=== PATIENT | male | born 1945 | race Caucasian/White ===

== ENCOUNTER 2018-03-26 22:00 | Emergency (ER) | payer MEDICARE, OTHER ==
[~2018-03-26] VITALS: Ht 180.3 cm; Wt 114.3 kg
[~2018-03-26 22:00] MED LIST: ABAT250V; ALFU10 PO; ALPR.5 PO; AMIO200 PO; AMLO10 PO; AMLO5; AMLO5 PO; ASCO500; ASPI325 PO; ASPI325EC PO; ASPI81EC; ATOR40TA; Augmentin 875-1 EACH PO; BUSP10; BUSP15; BUSP15 PO; CARV25 PO; CARV6.25 PO; CEFP200 PO; CHOL10002 PO; CO Q10200 MG; DEXILANT; DEXILANT PO; DEXL60CA3 PO; DIGO.25; DIGO.25 PO; ELIQUIS5 MG PO; FENO48 PO; FENO54 PO; FERR325 PO; FINA5 PO; FLEC50 PO; FURO40 PO; GABA300; HCTZ PO; HYDACE7.5 PO; HYDCHL12.5; HYDCHL25 PO; HYDR1TAB94 PO; IRON; LEVFLO500 PO; LISI20; LISI20 PO; LISI5 PO; MAGCHL64ER PO; MECL25 PO; METHI10 PO; METO100ER; MULTAQ PO; NABU500; NEBI5 PO; NIAC500 PO; Norco 5-325 Ta1 EACH PO; OMEP20ER PO; PARO10 PO; PRED10 PO; PROP80ER PO; Prednisone20 MG PO; QUIN325; RANI150 PO; RXHYD5325 PO; SAWPALMETTO; SERT100 PO; SPIHYD; SPIR25 PO; TAMS.4ER; TAMS.4ER PO; TELM40 PO; TELM80 PO; TRAZ100; TRAZ100 PO; TRAZ50; TRIHYD253A PO; Tambocor100 MG PO; UBID100 PO; Vitamin D2000 UNIT PO; WARF2; WARF2.5 PO; WARF5 PO; ZOLP10 PO; [UNRECOGNIZED DRUG - CODE]
[2018-03-26] MEDS ORDERED: CEPH500 PO (22:23)
== END 2018-03-26 22:48 | disposition home or self-care (01) ==
LOC: ER 22:00
DX: S61.432A Puncture wound without foreign body of left hand, initial encounter (principal); I10 Essential (primary) hypertension; I48.91 Unspecified atrial fibrillation; Z88.5 Allergy status to narcotic agent; Z88.6 Allergy status to analgesic agent; Z23 Encounter for immunization; Z79.899 Other long term (current) drug therapy; Z79.01 Long term (current) use of anticoagulants; Z87.891 Personal history of nicotine dependence; W24.0XXA Contact with lifting devices, not elsewhere classified, initial encounter
CPT/HCPCS: 90471; 90714; 99283-25

== ENCOUNTER 2018-05-03 16:28 | Inpatient (IN) | payer MEDICARE, OTHER ==
[~2018-05-03] VITALS: Ht 180.3 cm; Wt 105.9 kg
[~2018-05-03 16:28] MED LIST changes: +CEPH500 PO
[2018-05-03] MEDS ORDERED: SERT100 PO (16:58)
[2018-05-03] MEDS ORDERED: Ferrous Sulfat325 MG PO (17:03)
[2018-05-03] MEDS ORDERED: LIVALO1 MG PO (17:03)
[2018-05-03] MEDS ORDERED: SPIR25 PO (17:03)
[2018-05-03 17:10] LABS: BASOPHILS ABSOLUTE AUTO 0.07 K/mm3 (0.00-0.23); BASOPHILS PERCENT AUTO 1 % (0-2); EOSINOPHILS ABSOLUTE AUTO 0.21 K/mm3 (0.00-0.68); EOSINOPHILS PERCENT AUTO 2 % (0-6); Hematocrit 46.3 % (37.0-53.0); Hemoglobin 15.4 g/dL (13.5-17.5); IMMATURE GRAN ABSOLUTE AUTO 0.03 K/mm3 (0.00-0.10); IMMATURE GRAN PERCENT AUTO 0 % (0-1); LYMPHOCYTES ABSOLUTE AUTO 1.45 K/mm3 (0.84-5.20); LYMPHOCYTES PERCENT AUTO 16 % (21-46); MONOCYTES ABSOLUTE AUTO 0.78 K/mm3 (0.16-1.47); MONOCYTES PERCENT AUTO 9 % (4-13); Mean Corpuscular HGB 30.1 pg (26.0-34.0); Mean Corpuscular HGB Conc 33.3 g/dL (31.5-36.5); Mean Corpuscular Volume 91 fL (80-100); Mean Platelet Volume 10.2 fL (9.1-12.4); NEUTROPHILS ABSOLUTE AUTO 6.66 K/mm3 (1.96-9.15); NEUTROPHILS PERCENT AUTO 72 % (41-73); Platelet Count 188 K/mm3 (150-400); RDW Coefficient Variation 13.3 % (11.7-14.2); RDW Standard Deviation 45.1 fL (35.1-46.3); Red Blood Cell Count 5.11 M/mm3 (4.30-5.90)
[2018-05-03 17:32] LABS: Albumin, Blood 3.8 g/dL (3.4-5.0); Albumin/Globulin Ratio 1.1 (0.8-1.8); Bilirubin, Total 0.3 mg/dL (0.1-1.0); Bun/Creatinine Ratio 18.3 (12.0-20.0); Calcium, Blood 9.3 mg/dL (8.5-10.1); Creatinine, Blood 1.26 mg/dL (0.60-1.20); Globulin, Blood 3.6 g/dL (2.2-4.0); Potassium, Blood 4.5 mmol/L (3.5-5.5); Total Protein, Blood 7.4 g/dL (6.4-8.2)
[2018-05-03 17:48] LABS: Troponin I 1.08 ng/mL (0.000-0.040)
[2018-05-03 19:35] LABS: International Normalized Ratio 1.02; Prothrombin Time Results 10.5 Sec (9.7-11.5)
[2018-05-03 20:18] LABS: Creatine Kinase MB 15.2 ng/mL (0.0-3.6); Creatine Kinase MB Index 6.4 (0.0-4.0)
[2018-05-03 20:35] LABS: Troponin I 3.64 ng/mL (0.000-0.040)
[2018-05-03] MEDS ORDERED: ASCO500 PO (21:42)
[2018-05-03] MEDS ORDERED: CYAN500 PO (21:43)
[2018-05-04 03:49] LABS: BASOPHILS ABSOLUTE AUTO 0.06 K/mm3 (0.00-0.23); BASOPHILS PERCENT AUTO 1 % (0-2); EOSINOPHILS ABSOLUTE AUTO 0.19 K/mm3 (0.00-0.68); EOSINOPHILS PERCENT AUTO 2 % (0-6); Hematocrit 46.3 % (37.0-53.0); Hemoglobin 15.1 g/dL (13.5-17.5); IMMATURE GRAN ABSOLUTE AUTO 0.04 K/mm3 (0.00-0.10); IMMATURE GRAN PERCENT AUTO 1 % (0-1); LYMPHOCYTES ABSOLUTE AUTO 1.52 K/mm3 (0.84-5.20); LYMPHOCYTES PERCENT AUTO 19 % (21-46); MONOCYTES ABSOLUTE AUTO 0.77 K/mm3 (0.16-1.47); MONOCYTES PERCENT AUTO 9 % (4-13); Mean Corpuscular HGB 29.7 pg (26.0-34.0); Mean Corpuscular HGB Conc 32.6 g/dL (31.5-36.5); Mean Corpuscular Volume 91 fL (80-100); Mean Platelet Volume 10.2 fL (9.1-12.4); NEUTROPHILS ABSOLUTE AUTO 5.64 K/mm3 (1.96-9.15); NEUTROPHILS PERCENT AUTO 69 % (41-73); Platelet Count 142 K/mm3 (150-400); RDW Coefficient Variation 13.5 % (11.7-14.2); RDW Standard Deviation 44.9 fL (35.1-46.3); Red Blood Cell Count 5.09 M/mm3 (4.30-5.90); White Blood Cell Count 8.22 K/mm3 (4.00-11.30)
[2018-05-04 04:21] LABS: CPK Creatine Kinase 174 U/L (39-308); Creatine Kinase MB 11.8 ng/mL (0.0-3.6); Creatine Kinase MB Index 6.8 (0.0-4.0); Magnesium, Blood 2.1 mg/dL (1.6-2.4)
[2018-05-04 04:22] LABS: Anion Gap 10 mmol/L (6-16); Blood Urea Nitrogen 19 mg/dL (8-24); Bun/Creatinine Ratio 15.6 (12.0-20.0); CHOL/HDL RATIO 7.3; CO2, Blood 23 mmol/L (21-32); Calcium, Blood 8.3 mg/dL (8.5-10.1); Chloride, Blood 107 mmol/L (98-108); Cholesterol 189 mg/dL (50-200); Creatinine, Blood 1.22 mg/dL (0.60-1.20); Glomerular Filtration Rate >60 (60-); Glucose, Blood 109 mg/dL (70-99); HDL Cholesterol 26 mg/dL (>39); Phosphorus, Blood 2.8 mg/dL (2.5-4.9); Potassium, Blood 4.1 mmol/L (3.5-5.5); Sodium, Blood 140 mmol/L (136-145); Triglycerides 570 mg/dL (30-160); Very Low Density Lipoprot Chol Unable to Calculate mg/dL (6-32)
[2018-05-04 04:23] LABS: LDL/HDL RATIO Unable to Calculate; Low Density Lipoprotein Chol Unable to Calculate mg/dL (0-110)
[2018-05-04 09:57] LABS: Creatine Kinase MB 12.9 ng/mL (0.0-3.6); Creatine Kinase MB Index 7.2 (0.0-4.0)
[2018-05-04 10:36] LABS: Troponin I 1.38 ng/mL (0.000-0.040)
[2018-05-05 04:14] LABS: Anion Gap 9 mmol/L (6-16); Blood Urea Nitrogen 16 mg/dL (8-24); Bun/Creatinine Ratio 13.7 (12.0-20.0); CO2, Blood 24 mmol/L (21-32); Calcium, Blood 8.1 mg/dL (8.5-10.1); Chloride, Blood 109 mmol/L (98-108); Creatinine, Blood 1.17 mg/dL (0.60-1.20); Glomerular Filtration Rate >60 (60-); Glucose, Blood 116 mg/dL (70-99); Potassium, Blood 4.1 mmol/L (3.5-5.5); Sodium, Blood 142 mmol/L (136-145)
[2018-05-06 03:50] LABS: Anion Gap 8 mmol/L (6-16); Blood Urea Nitrogen 15 mg/dL (8-24); Bun/Creatinine Ratio 12.5 (12.0-20.0); CO2, Blood 24 mmol/L (21-32); Calcium, Blood 8.4 mg/dL (8.5-10.1); Chloride, Blood 107 mmol/L (98-108); Glomerular Filtration Rate >60 (60-); Glucose, Blood 103 mg/dL (70-99); Potassium, Blood 4.4 mmol/L (3.5-5.5); Sodium, Blood 139 mmol/L (136-145)
== END 2018-05-06 14:15 | disposition short-term general hospital (02) | DRG 281 ==
LOC: ER 16:28 → ICUW 18:26 → ICUE 18:26
PROVIDERS: Family Medicine; Physician Assistant
PROC: 4A023N7 Measurement of Cardiac Sampling and Pressure, Left Heart, Percutaneous Approach (ICD-10-PCS; principal; 2018-05-05)
PROC: B211YZZ Fluoroscopy of Multiple Coronary Arteries using Other Contrast (ICD-10-PCS; 2018-05-05)
DX: I21.4 Non-ST elevation (NSTEMI) myocardial infarction (principal); D68.32 Hemorrhagic disorder due to extrinsic circulating anticoagulants; I48.1 Persistent atrial fibrillation; I25.10 Atherosclerotic heart disease of native coronary artery without angina pectoris; N18.3 Chronic kidney disease, stage 3 (moderate); I12.9 Hypertensive chronic kidney disease with stage 1 through stage 4 chronic kidney disease, or unspecified chronic kidney disease; E78.5 Hyperlipidemia, unspecified; N40.0 Benign prostatic hyperplasia without lower urinary tract symptoms; M10.9 Gout, unspecified
CPT/HCPCS: 36415; 71046; 80048; 80053; 80061; 82550; 82553; 83036; 83735; 83880; 84100; 84484; 85025; 85610; 85730; 86850; 86900; 86901; 93005; 93010; 93308; 93321; 93458; 96374; 99152; 99153; 99285-25; C1769; C1894; J1644; J1650; J2250; J3010; J7030; J7040; Q9967

== ENCOUNTER 2018-05-24 13:22 | Emergency (ER) | payer MEDICARE, OTHER ==
[~2018-05-24] VITALS: Ht 180.3 cm; Wt 116.1 kg
[~2018-05-24 13:22] MED LIST changes: +ASCO500 PO; +CYAN500 PO; +Ferrous Sulfat325 MG PO; +LIVALO1 MG PO
[2018-05-24] MEDS ORDERED: AZIT250 PO (14:00)
== END 2018-05-24 14:26 | disposition home or self-care (01) ==
LOC: ER 13:22
DX: J18.1 Lobar pneumonia, unspecified organism (principal); I10 Essential (primary) hypertension; I48.91 Unspecified atrial fibrillation; Z88.5 Allergy status to narcotic agent; Z88.6 Allergy status to analgesic agent; Z79.899 Other long term (current) drug therapy; Z95.0 Presence of cardiac pacemaker; Z87.891 Personal history of nicotine dependence
CPT/HCPCS: 71046; 99283-25

== ENCOUNTER → 2018-08-15 | Outpatient (CLI) | payer MEDICARE, OTHER ==
[~2018-08-15] MED LIST changes: +AZIT250 PO
[2018-08-15 08:10] LABS: Source, Urine Clean Catch
[2018-08-15 10:01] LABS: Bilirubin, Urine Neg (Neg); Blood, Urine 1+ (Neg); Glucose Qualitative, Urine Neg (Neg); Ketones, Urine Neg (Neg); Leukocyte Esterase, Urine Neg (Neg); Nitrite, Urine Neg (Neg); Protein, Urine 2+ (Neg); Specific Gravity, Urine 1.015 (1.003-1.022); Urobilinogen, Urine NORM (Normal)
[2018-08-15 10:11] LABS: Appearance, Urine Clear (Clear); Color, Urine Yellow (P-Yellow)
[2018-08-15 10:12] LABS: Red Blood Cells, Urine 0-2 /hpf (0-2); Squamous Epithelial Cells Rare /hpf (Few); White Blood Cells, Urine Rare /hpf (0-5)
[2018-08-15 10:13] LABS: Bacteria Not Seen /hpf; Renal Epithelial Rare /hpf (0-Rare)
== END | disposition home or self-care (01) ==
LOC: LAB SHORT 08:08 → LAB 08:08 → EDSTATUS 08-11 10:55 → LAB FUT 08-11 10:55
PROVIDERS: Internal Medicine
DX: N39.0 Urinary tract infection, site not specified (principal)
CPT/HCPCS: 81001

== ENCOUNTER 2019-08-11 08:17 | Day surgery (SDC) | payer MEDICARE, OTHER ==
--- NOTE | 2019-08-11 10:14 | NUR ---
REPORT RECIEVED FROM [facility]. HOB ELEVATED TO 30 DEGREES. PT ON BACK FOR COMFORT. PT ALERT AND ORIENTED X4. DENIES NUMBNESS OR TINGLING IN EXTREMITIES. FINGER HANDS AND DIAL INSPECTOR STRENGHT STRONG AND EQUAL BILATERALLY. FEET STRENGTH STRONG AND EQUAL BILATERALLY. WILL CONTINUE TO MONITOR AND REPORT ANY CHANGES.
--- NOTE | 2019-08-11 12:01 | NUR ---
Patient up to Ambulate independently. Gait steady. USED PERSONAL WALKER. Discharge instructions reviewed with patient. Patient verbalizes understanding. Copy given to patient to take home. Discharged via wheelchair to private car for ride home PER REQUEST WITH . NEURO CHECKS REMAINED UNCHANGED THROUGHOUT. BANDAID REMAINED CDI.
== END 2019-08-11 22:48 | disposition home or self-care (01) ==
LOC: RAD 08:17 → ORSCMMR 08:18 → RAD 09:00
DX: M51.36 Other intervertebral disc degeneration, lumbar region (principal); M51.37 Other intervertebral disc degeneration, lumbosacral region; M48.061 Spinal stenosis, lumbar region without neurogenic claudication
CPT/HCPCS: 62304; 72132; Q9966

== ENCOUNTER 2019-11-06 10:21 | Emergency (ER) | payer MEDICARE ==
[~2019-11-06] VITALS: Ht 180.3 cm; Wt 115.7 kg
[2019-11-06 11:12] LABS: BASOPHILS ABSOLUTE AUTO 0.05 K/mm3 (0.00-0.23); BASOPHILS PERCENT AUTO 1 % (0-2); EOSINOPHILS ABSOLUTE AUTO 0.13 K/mm3 (0.00-0.68); EOSINOPHILS PERCENT AUTO 2 % (0-6); Hemoglobin 13.3 g/dL (13.5-17.5); IMMATURE GRAN ABSOLUTE AUTO 0.02 K/mm3 (0.00-0.10); IMMATURE GRAN PERCENT AUTO 0 % (0-1); LYMPHOCYTES ABSOLUTE AUTO 1.01 K/mm3 (0.84-5.20); LYMPHOCYTES PERCENT AUTO 16 % (21-46); MONOCYTES PERCENT AUTO 10 % (4-13); Mean Corpuscular HGB 29.2 pg (26.0-34.0); Mean Corpuscular HGB Conc 30.9 g/dL (31.5-36.5); Mean Corpuscular Volume 94 fL (80-100); Mean Platelet Volume 10.5 fL (9.1-12.4); NEUTROPHILS ABSOLUTE AUTO 4.47 K/mm3 (1.96-9.15); NEUTROPHILS PERCENT AUTO 71 % (41-73); Platelet Count 147 K/mm3 (150-400); RDW Coefficient Variation 13.3 % (11.7-14.2); RDW Standard Deviation 46.3 fL (35.1-46.3); Red Blood Cell Count 4.56 M/mm3 (4.30-5.90); White Blood Cell Count 6.28 K/mm3 (4.00-11.30)
[2019-11-06 11:32] LABS: Troponin I <0.015 ng/mL (0.000-0.040)
[2019-11-06 11:34] LABS: Alanine Aminotransfer (ALT/SGP 50 U/L (12-78); Albumin, Blood 3.4 g/dL (3.4-5.0); Albumin/Globulin Ratio 0.9 (0.8-1.8); Alk Phos 79 U/L (50-136); Anion Gap 5 mmol/L (6-16); Aspartate Aminotrans (AST/SGOT 47 U/L (12-37); Bilirubin, Total 0.3 mg/dL (0.1-1.0); Blood Urea Nitrogen 12 mg/dL (8-24); Bun/Creatinine Ratio 11.7 (12.0-20.0); CO2, Blood 26 mmol/L (21-32); Calcium, Blood 8.3 mg/dL (8.5-10.1); Chloride, Blood 105 mmol/L (98-108); Creatinine, Blood 1.03 mg/dL (0.60-1.20); Globulin, Blood 3.6 g/dL (2.2-4.0); Glomerular Filtration Rate >60 (60-); Glucose, Blood 119 mg/dL (70-99); Potassium, Blood 4.2 mmol/L (3.5-5.5); Sodium, Blood 136 mmol/L (136-145)
== END 2019-11-06 13:00 | disposition home or self-care (01) ==
LOC: ER 10:21
PROVIDERS: Emergency Medicine
DX: I48.91 Unspecified atrial fibrillation (principal); I25.810 Atherosclerosis of coronary artery bypass graft(s) without angina pectoris; Q79.59 Other congenital malformations of abdominal wall; Z88.5 Allergy status to narcotic agent; Z88.8 Allergy status to other drugs, medicaments and biological substances; Z79.899 Other long term (current) drug therapy; Z79.2 Long term (current) use of antibiotics; I10 Essential (primary) hypertension; F41.9 Anxiety disorder, unspecified; N40.0 Benign prostatic hyperplasia without lower urinary tract symptoms
CPT/HCPCS: 36415; 71046; 80053; 84484; 85025; 93005; 93010; 99285-25

== ENCOUNTER → 2020-10-24 | Outpatient (CLI) | payer MEDICARE, OTHER | END | disposition home or self-care (01) | LOC: LAB SHORT 12:42 → LAB 12:42 | DX: G57.52 Tarsal tunnel syndrome, left lower limb (principal) | CPT/HCPCS: 87070; 87205 ==

== ENCOUNTER → 2021-01-20 | Outpatient (CLI) | payer MEDICARE, OTHER ==
[2021-01-20 11:51] LABS: BASOPHILS ABSOLUTE AUTO 0.06 K/mm3 (0.00-0.23); BASOPHILS PERCENT AUTO 1 % (0-2); EOSINOPHILS ABSOLUTE AUTO 0.24 K/mm3 (0.00-0.68); EOSINOPHILS PERCENT AUTO 3 % (0-6); Hematocrit 42.3 % (37.0-53.0); Hemoglobin 13.8 g/dL (13.5-17.5); IMMATURE GRAN ABSOLUTE AUTO 0.03 K/mm3 (0.00-0.10); IMMATURE GRAN PERCENT AUTO 0 % (0-1); LYMPHOCYTES ABSOLUTE AUTO 0.87 K/mm3 (0.84-5.20); LYMPHOCYTES PERCENT AUTO 12 % (21-46); MONOCYTES ABSOLUTE AUTO 0.48 K/mm3 (0.16-1.47); MONOCYTES PERCENT AUTO 7 % (4-13); Mean Corpuscular HGB 29.2 pg (26.0-34.0); Mean Corpuscular HGB Conc 32.6 g/dL (31.5-36.5); Mean Corpuscular Volume 89 fL (80-100); Mean Platelet Volume 9.9 fL (9.1-12.4); NEUTROPHILS ABSOLUTE AUTO 5.74 K/mm3 (1.96-9.15); NEUTROPHILS PERCENT AUTO 77 % (41-73); Platelet Count 174 K/mm3 (150-400); RDW Standard Deviation 45.6 fL (35.1-46.3); Red Blood Cell Count 4.73 M/mm3 (4.30-5.90); White Blood Cell Count 7.42 K/mm3 (4.00-11.30)
[2021-01-20 12:01] LABS: Alanine Aminotransfer (ALT/SGP 15 U/L (12-78); Albumin, Blood 3.2 g/dL (3.4-5.0); Albumin/Globulin Ratio 0.7 (0.8-1.8); Alk Phos 74 U/L (40-126); Anion Gap 8 mmol/L (6-16); Aspartate Aminotrans (AST/SGOT 17 U/L (12-37); Bilirubin, Total 0.5 mg/dL (0.1-1.0); Blood Urea Nitrogen 11 mg/dL (8-24); Bun/Creatinine Ratio 9.8 (12.0-20.0); CO2, Blood 26 mmol/L (21-32); Calcium, Blood 8.8 mg/dL (8.5-10.1); Chloride, Blood 102 mmol/L (98-108); Creatinine, Blood 1.12 mg/dL (0.60-1.20); Globulin, Blood 4.5 g/dL (2.2-4.0); Glomerular Filtration Rate >60 (60-); Glucose, Blood 100 mg/dL (70-99); Potassium, Blood 4.3 mmol/L (3.5-5.5); Sodium, Blood 136 mmol/L (136-145); Total Protein, Blood 7.7 g/dL (6.4-8.2)
== END | disposition home or self-care (01) ==
LOC: LAB 11:45 → LAB SHORT 11:45
PROVIDERS: Physician Assistant
DX: R06.00 Dyspnea, unspecified (principal)
CPT/HCPCS: 80053; 83880; 84484; 85025; 85379

== ENCOUNTER 2021-09-18 08:05 | Day surgery (SDC) | payer MEDICARE, OTHER ==
[~2021-09-18] VITALS: Ht 177.8 cm; Wt 108.0 kg
[~2021-09-18 08:05] MED LIST changes: +BUPRENORPHINE HC2 M1 SL; +DIGOX125 MC1 PO; +METO100ER PO; +METO25ER PO
--- NOTE | 2021-09-18 13:08 | NUR ---
PT AND VERBALIZED UNDERSTANDING OR WRITTEN AND VERBAL D/C INST. -BLEEDING OR SWELLING L UPPER CHEST AREA. IV REMOVED. PT TAKEN OUT OF THE HRT CENTER VIA W/C.
== END 2021-09-18 12:30 | disposition home or self-care (01) ==
LOC: MHTC 08:05
DX: Z45.010 Encounter for checking and testing of cardiac pacemaker pulse generator [battery] (principal); I25.810 Atherosclerosis of coronary artery bypass graft(s) without angina pectoris; I48.0 Paroxysmal atrial fibrillation; I77.810 Thoracic aortic ectasia; E78.5 Hyperlipidemia, unspecified; F41.9 Anxiety disorder, unspecified; I11.9 Hypertensive heart disease without heart failure; E11.9 Type 2 diabetes mellitus without complications; Z88.5 Allergy status to narcotic agent; Z88.8 Allergy status to other drugs, medicaments and biological substances
CPT/HCPCS: 33228; 99152; 99153; C1781; C1785; J0690; J1580; J1644; J2250; J3010; J7030; J7040

== ENCOUNTER 2022-11-05 04:09 | Emergency (ER) | payer MEDICARE, OTHER ==
[~2022-11-05] VITALS: Ht 177.8 cm; Wt 105.9 kg
[2022-11-05 04:51] LABS: BASOPHILS ABSOLUTE AUTO 0.03 K/mm3 (0.00-0.23); BASOPHILS PERCENT AUTO 1 % (0-2); EOSINOPHILS ABSOLUTE AUTO 0.16 K/mm3 (0.00-0.68); EOSINOPHILS PERCENT AUTO 3 % (0-6); Hematocrit 43.1 % (37.0-53.0); Hemoglobin 13.9 g/dL (13.5-17.5); IMMATURE GRAN ABSOLUTE AUTO 0.02 K/mm3 (0.00-0.10); IMMATURE GRAN PERCENT AUTO 0 % (0-1); LYMPHOCYTES ABSOLUTE AUTO 0.87 K/mm3 (0.84-5.20); LYMPHOCYTES PERCENT AUTO 14 % (21-46); MONOCYTES ABSOLUTE AUTO 0.38 K/mm3 (0.16-1.47); MONOCYTES PERCENT AUTO 6 % (4-13); Mean Corpuscular HGB 29.3 pg (26.0-34.0); Mean Corpuscular HGB Conc 32.3 g/dL (31.5-36.5); Mean Corpuscular Volume 91 fL (80-100); Mean Platelet Volume 9.9 fL (9.1-12.4); NEUTROPHILS ABSOLUTE AUTO 4.95 K/mm3 (1.96-9.15); NEUTROPHILS PERCENT AUTO 77 % (41-73); Platelet Count 123 K/mm3 (150-400); RDW Coefficient Variation 13.8 % (11.7-14.2); RDW Standard Deviation 46.7 fL (35.1-46.3); Red Blood Cell Count 4.74 M/mm3 (4.30-5.90); White Blood Cell Count 6.41 K/mm3 (4.00-11.30)
[2022-11-05 05:02] LABS: Albumin, Blood 3.3 g/dL (3.4-5.0); Bilirubin, Total 0.2 mg/dL (0.1-1.0); Bun/Creatinine Ratio 12.3 (12.0-20.0); Calcium, Blood 8.6 mg/dL (8.5-10.1); Creatinine, Blood 1.06 mg/dL (0.60-1.20); Globulin, Blood 3.3 g/dL (2.2-4.0); Potassium, Blood 4.2 mmol/L (3.5-5.5); Total Protein, Blood 6.6 g/dL (6.4-8.2)
[2022-11-05 07:30] VITALS: BP 122/67
[2022-11-05] MEDS ORDERED: FAMO20 PO (07:46)
[2022-11-05] MEDS ORDERED: Aspir 8181 MG PO (07:46)
== END 2022-11-05 08:00 | disposition home or self-care (01) ==
LOC: ER 04:09
PROVIDERS: Student in an Organized Health Care Education/Training Program
DX: G45.9 Transient cerebral ischemic attack, unspecified (principal); R47.1 Dysarthria and anarthria; R47.01 Aphasia; R07.89 Other chest pain; K21.9 Gastro-esophageal reflux disease without esophagitis; Z88.5 Allergy status to narcotic agent; Z88.8 Allergy status to other drugs, medicaments and biological substances; Z79.899 Other long term (current) drug therapy; I10 Essential (primary) hypertension; I48.91 Unspecified atrial fibrillation; M10.9 Gout, unspecified; E78.5 Hyperlipidemia, unspecified
CPT/HCPCS: 70450; 71046; 80053; 83880; 84484; 85025; 99285-25; A9270

== ENCOUNTER 2023-01-13 03:07 | Emergency (ER) | payer MEDICARE, OTHER ==
[~2023-01-13] VITALS: Ht 180.3 cm; Wt 103.9 kg
[~2023-01-13 03:07] MED LIST changes: +Aspir 8181 MG PO; +FAMO20 PO
[2023-01-13] MEDS ORDERED: LIVALO2 MG PO (04:20)
[2023-01-13] MEDS ORDERED: OXYC5 PO (04:21)
[2023-01-13 05:30] VITALS: BP 116/99
== END 2023-01-13 05:57 | disposition home or self-care (01) ==
LOC: ER 03:07
DX: S80.11XA Contusion of right lower leg, initial encounter (principal); I48.91 Unspecified atrial fibrillation; X58.XXXA Exposure to other specified factors, initial encounter; Z79.01 Long term (current) use of anticoagulants; Z87.891 Personal history of nicotine dependence
CPT/HCPCS: 99283

== ENCOUNTER 2023-07-04 19:06 | Emergency (ER) | payer MEDICARE, OTHER ==
[~2023-07-04] VITALS: Ht 177.8 cm; Wt 102.5 kg
[~2023-07-04 19:06] MED LIST changes: +LIVALO2 MG PO; +OXYC5 PO
[2023-07-04 20:09] LABS: BASOPHILS ABSOLUTE AUTO 0.04 K/mm3 (0.00-0.23); BASOPHILS PERCENT AUTO 1 % (0-2); EOSINOPHILS ABSOLUTE AUTO 0.14 K/mm3 (0.00-0.68); EOSINOPHILS PERCENT AUTO 2 % (0-6); Hematocrit 41.4 % (37.0-53.0); Hemoglobin 14.3 g/dL (13.5-17.5); IMMATURE GRAN ABSOLUTE AUTO 0.03 K/mm3 (0.00-0.10); IMMATURE GRAN PERCENT AUTO 0 % (0-1); LYMPHOCYTES ABSOLUTE AUTO 1.16 K/mm3 (0.84-5.20); LYMPHOCYTES PERCENT AUTO 16 % (21-46); MONOCYTES ABSOLUTE AUTO 0.45 K/mm3 (0.16-1.47); MONOCYTES PERCENT AUTO 6 % (4-13); Mean Corpuscular HGB 30.4 pg (26.0-34.0); Mean Corpuscular HGB Conc 34.5 g/dL (31.5-36.5); Mean Corpuscular Volume 88 fL (80-100); Mean Platelet Volume 10.4 fL (9.1-12.4); NEUTROPHILS ABSOLUTE AUTO 5.37 K/mm3 (1.96-9.15); NEUTROPHILS PERCENT AUTO 75 % (41-73); Platelet Count 143 K/mm3 (150-400); RDW Coefficient Variation 13.1 % (11.7-14.2); RDW Standard Deviation 42.4 fL (35.1-46.3); White Blood Cell Count 7.19 K/mm3 (4.00-11.30)
[2023-07-04 20:27] LABS: Albumin, Blood 3.5 g/dL (3.4-5.0); Bilirubin, Total 0.4 mg/dL (0.1-1.0); Bun/Creatinine Ratio 16.1 (12.0-20.0); Creatinine, Blood 1.12 mg/dL (0.60-1.20); Globulin, Blood 3.4 g/dL (2.2-4.0); Potassium, Blood 4.6 mmol/L (3.5-5.5); Total Protein, Blood 6.9 g/dL (6.4-8.2)
[2023-07-04] MEDS ORDERED: TORSE20 PO (20:44)
[2023-07-04 21:45] VITALS: BP 116/69
== END 2023-07-04 22:14 | disposition home or self-care (01) ==
LOC: ER 19:06
PROVIDERS: Physician Assistant
DX: I95.9 Hypotension, unspecified (principal); I48.91 Unspecified atrial fibrillation; M10.9 Gout, unspecified; E78.5 Hyperlipidemia, unspecified; N40.0 Benign prostatic hyperplasia without lower urinary tract symptoms; I10 Essential (primary) hypertension; Z95.0 Presence of cardiac pacemaker; Z79.01 Long term (current) use of anticoagulants; Z79.899 Other long term (current) drug therapy; Z88.5 Allergy status to narcotic agent; Z88.8 Allergy status to other drugs, medicaments and biological substances
CPT/HCPCS: 80053; 84484; 85025; 85730; 93005; 93010; 99284-25

== ENCOUNTER → 2024-04-28 | Outpatient (CLI) | payer MEDICARE, OTHER ==
[~2024-04-28] MED LIST changes: +TORSE20 PO
[2024-04-28 09:44] LABS: BASOPHILS ABSOLUTE AUTO 0.03 K/mm3 (0.00-0.23); BASOPHILS PERCENT AUTO 0 % (0-2); EOSINOPHILS ABSOLUTE AUTO 0.04 K/mm3 (0.00-0.68); EOSINOPHILS PERCENT AUTO 0 % (0-6); Hematocrit 47.3 % (37.0-53.0); Hemoglobin 15.8 g/dL (13.5-17.5); IMMATURE GRAN ABSOLUTE AUTO 0.04 K/mm3 (0.00-0.10); IMMATURE GRAN PERCENT AUTO 0 % (0-1); LYMPHOCYTES ABSOLUTE AUTO 0.45 K/mm3 (0.84-5.20); LYMPHOCYTES PERCENT AUTO 4 % (21-46); MONOCYTES ABSOLUTE AUTO 0.61 K/mm3 (0.16-1.47); MONOCYTES PERCENT AUTO 6 % (4-13); Mean Corpuscular HGB 29.8 pg (26.0-34.0); Mean Corpuscular HGB Conc 33.4 g/dL (31.5-36.5); Mean Corpuscular Volume 89 fL (80-100); Mean Platelet Volume 9.5 fL (9.1-12.4); NEUTROPHILS PERCENT AUTO 89 % (41-73); Platelet Count 114 K/mm3 (150-400); RDW Coefficient Variation 14.6 % (11.7-14.2); RDW Standard Deviation 47.2 fL (35.1-46.3); Red Blood Cell Count 5.31 M/mm3 (4.30-5.90); White Blood Cell Count 10.27 K/mm3 (4.00-11.30)
[2024-04-28 09:56] LABS: Albumin, Blood 3.6 g/dL (3.4-5.0); Bilirubin, Total 0.5 mg/dL (0.1-1.0); Bun/Creatinine Ratio 13.7 (12.0-20.0); Calcium, Blood 8.9 mg/dL (8.5-10.1); Creatinine, Blood 1.31 mg/dL (0.60-1.20); Globulin, Blood 3.5 g/dL (2.2-4.0); Potassium, Blood 4.3 mmol/L (3.5-5.5); Total Protein, Blood 7.1 g/dL (6.4-8.2)
== END | disposition home or self-care (01) ==
LOC: LAB 09:41 → LAB SHORT 09:41
PROVIDERS: Physician Assistant Medical
DX: R50.9 Fever, unspecified (principal)
CPT/HCPCS: 80053; 85025

== ENCOUNTER → 2024-04-29 | Outpatient (CLI) | payer MEDICARE, OTHER ==
[2024-04-29 10:44] LABS: BASOPHILS ABSOLUTE AUTO 0.03 K/mm3 (0.00-0.23); BASOPHILS PERCENT AUTO 0 % (0-2); EOSINOPHILS ABSOLUTE AUTO 0.08 K/mm3 (0.00-0.68); EOSINOPHILS PERCENT AUTO 1 % (0-6); Hemoglobin 14.8 g/dL (13.5-17.5); IMMATURE GRAN ABSOLUTE AUTO 0.04 K/mm3 (0.00-0.10); IMMATURE GRAN PERCENT AUTO 0 % (0-1); LYMPHOCYTES ABSOLUTE AUTO 0.97 K/mm3 (0.84-5.20); LYMPHOCYTES PERCENT AUTO 10 % (21-46); MONOCYTES ABSOLUTE AUTO 0.87 K/mm3 (0.16-1.47); MONOCYTES PERCENT AUTO 9 % (4-13); Mean Corpuscular HGB 30.2 pg (26.0-34.0); Mean Corpuscular HGB Conc 33.6 g/dL (31.5-36.5); Mean Corpuscular Volume 90 fL (80-100); NEUTROPHILS ABSOLUTE AUTO 7.49 K/mm3 (1.96-9.15); NEUTROPHILS PERCENT AUTO 79 % (41-73); RDW Coefficient Variation 14.8 % (11.7-14.2); RDW Standard Deviation 47.6 fL (35.1-46.3); White Blood Cell Count 9.48 K/mm3 (4.00-11.30)
[2024-04-29 10:45] LABS: Bun/Creatinine Ratio 18.8 (12.0-20.0); Calcium, Blood 9.1 mg/dL (8.5-10.1); Creatinine, Blood 1.12 mg/dL (0.60-1.20); Potassium, Blood 4.3 mmol/L (3.5-5.5)
[2024-04-29 10:55] LABS: Mean Platelet Volume 10.1 fL (9.1-12.4); Platelet Count 132 K/mm3 (150-400)
== END ==
LOC: LAB 10:34 → LAB SHORT 10:34
PROVIDERS: Physician Assistant Medical
DX: J18.9 Pneumonia, unspecified organism (principal)
CPT/HCPCS: 80048; 83880; 85025

== ENCOUNTER → 2024-04-30 | Outpatient (CLI) | payer MEDICARE, OTHER ==
[2024-04-30 08:57] LABS: BASOPHILS ABSOLUTE AUTO 0.03 K/mm3 (0.00-0.23); BASOPHILS PERCENT AUTO 0 % (0-2); EOSINOPHILS ABSOLUTE AUTO 0.08 K/mm3 (0.00-0.68); EOSINOPHILS PERCENT AUTO 1 % (0-6); Hematocrit 41.6 % (37.0-53.0); Hemoglobin 13.8 g/dL (13.5-17.5); IMMATURE GRAN ABSOLUTE AUTO 0.04 K/mm3 (0.00-0.10); IMMATURE GRAN PERCENT AUTO 1 % (0-1); LYMPHOCYTES ABSOLUTE AUTO 0.84 K/mm3 (0.84-5.20); LYMPHOCYTES PERCENT AUTO 10 % (21-46); MONOCYTES PERCENT AUTO 8 % (4-13); Mean Corpuscular HGB 29.7 pg (26.0-34.0); Mean Corpuscular HGB Conc 33.2 g/dL (31.5-36.5); Mean Corpuscular Volume 90 fL (80-100); NEUTROPHILS ABSOLUTE AUTO 6.92 K/mm3 (1.96-9.15); NEUTROPHILS PERCENT AUTO 80 % (41-73); RDW Coefficient Variation 14.6 % (11.7-14.2); RDW Standard Deviation 47.6 fL (35.1-46.3); Red Blood Cell Count 4.65 M/mm3 (4.30-5.90); White Blood Cell Count 8.61 K/mm3 (4.00-11.30)
[2024-04-30 08:58] LABS: Mean Platelet Volume 10.4 fL (9.1-12.4); Platelet Count 123 K/mm3 (150-400)
[2024-04-30 09:10] LABS: Albumin, Blood 3.1 g/dL (3.4-5.0); Albumin/Globulin Ratio 0.8 (0.8-1.8); Bilirubin, Total 0.5 mg/dL (0.1-1.0); Bun/Creatinine Ratio 14.7 (12.0-20.0); Calcium, Blood 8.7 mg/dL (8.5-10.1); Creatinine, Blood 1.16 mg/dL (0.60-1.20); Globulin, Blood 3.9 g/dL (2.2-4.0); Potassium, Blood 3.9 mmol/L (3.5-5.5)
[2024-04-30 11:22] LABS: Digoxin (Lanoxin) 0.62 ug/mL (0.80-2.00)
== END ==
LOC: LAB 08:46 → LAB SHORT 08:46
PROVIDERS: Physician Assistant
DX: R06.02 Shortness of breath (principal); J18.9 Pneumonia, unspecified organism; I48.91 Unspecified atrial fibrillation
CPT/HCPCS: 80053; 80162; 83880; 84484; 85025

== ENCOUNTER → 2024-05-01 | Outpatient (CLI) | payer MEDICARE, OTHER ==
[2024-05-01 09:43] LABS: BASOPHILS ABSOLUTE AUTO 0.04 K/mm3 (0.00-0.23); BASOPHILS PERCENT AUTO 1 % (0-2); EOSINOPHILS ABSOLUTE AUTO 0.16 K/mm3 (0.00-0.68); EOSINOPHILS PERCENT AUTO 2 % (0-6); Hematocrit 45.5 % (37.0-53.0); Hemoglobin 14.8 g/dL (13.5-17.5); IMMATURE GRAN ABSOLUTE AUTO 0.03 K/mm3 (0.00-0.10); IMMATURE GRAN PERCENT AUTO 0 % (0-1); LYMPHOCYTES ABSOLUTE AUTO 0.84 K/mm3 (0.84-5.20); LYMPHOCYTES PERCENT AUTO 10 % (21-46); MONOCYTES ABSOLUTE AUTO 0.66 K/mm3 (0.16-1.47); MONOCYTES PERCENT AUTO 8 % (4-13); Mean Corpuscular HGB 29.1 pg (26.0-34.0); Mean Corpuscular HGB Conc 32.5 g/dL (31.5-36.5); Mean Corpuscular Volume 90 fL (80-100); Mean Platelet Volume 10.1 fL (9.1-12.4); NEUTROPHILS ABSOLUTE AUTO 6.44 K/mm3 (1.96-9.15); NEUTROPHILS PERCENT AUTO 79 % (41-73); Platelet Count 150 K/mm3 (150-400); RDW Coefficient Variation 14.6 % (11.7-14.2); RDW Standard Deviation 47.2 fL (35.1-46.3); Red Blood Cell Count 5.08 M/mm3 (4.30-5.90); White Blood Cell Count 8.17 K/mm3 (4.00-11.30)
[2024-05-01 09:47] LABS: Bun/Creatinine Ratio 13.7 (12.0-20.0); Calcium, Blood 8.7 mg/dL (8.5-10.1); Creatinine, Blood 1.24 mg/dL (0.60-1.20); Potassium, Blood 4.3 mmol/L (3.5-5.5)
== END ==
LOC: LAB 09:39 → LAB SHORT 09:39
PROVIDERS: Physician Assistant
DX: J18.9 Pneumonia, unspecified organism (principal)
CPT/HCPCS: 80048; 85025

== ENCOUNTER 2024-12-27 06:26 | Inpatient (IN) | payer MEDICARE, OTHER ==
[~2024-12-27] VITALS: Ht 177.8 cm; Wt 107.5 kg
[2024-12-27 07:06] LABS: BASOPHILS ABSOLUTE AUTO 0.06 K/mm3 (0.00-0.23); BASOPHILS PERCENT AUTO 1 % (0-2); EOSINOPHILS ABSOLUTE AUTO 0.36 K/mm3 (0.00-0.68); EOSINOPHILS PERCENT AUTO 4 % (0-6); Hematocrit 43.4 % (37.0-53.0); Hemoglobin 14.3 g/dL (13.5-17.5); IMMATURE GRAN ABSOLUTE AUTO 0.05 K/mm3 (0.00-0.10); IMMATURE GRAN PERCENT AUTO 1 % (0-1); LYMPHOCYTES ABSOLUTE AUTO 0.78 K/mm3 (0.84-5.20); LYMPHOCYTES PERCENT AUTO 8 % (21-46); MONOCYTES ABSOLUTE AUTO 0.69 K/mm3 (0.16-1.47); MONOCYTES PERCENT AUTO 7 % (4-13); Mean Corpuscular HGB Conc 32.9 g/dL (31.5-36.5); Mean Corpuscular Volume 92 fL (80-100); NEUTROPHILS ABSOLUTE AUTO 7.95 K/mm3 (1.96-9.15); NEUTROPHILS PERCENT AUTO 80 % (41-73); NRBC ABSOLUTE 0.00 K/mm3 (0.00-0.02); NRBC Auto 0.0 /100 WBC (0.0-0.2); Platelet Count 183 K/mm3 (150-400); RDW Coefficient Variation 14.2 % (11.7-14.2); RDW Standard Deviation 48.4 fL (35.1-46.3)
[2024-12-27 07:15] LABS: Alanine Aminotransfer (ALT/SGP 19.0 U/L (12-78); Albumin, Blood 2.7 g/dL (3.4-5.0); Albumin/Globulin Ratio 0.6 (0.8-1.8); Anion Gap 9.0 mmol/L (3-11); Aspartate Aminotrans (AST/SGOT 21.0 U/L (12-37); Bilirubin, Total 0.7 mg/dL (0.1-1.0); Blood Urea Nitrogen 16.0 mg/dL (8-24); CO2, Blood 24.0 mmol/L (21-32); Calcium, Blood 8.5 mg/dL (8.5-10.1); Chloride, Blood 102.0 mmol/L (98-108); Creatinine, Blood 1.09 mg/dL (0.60-1.20); Globulin, Blood 4.7 g/dL (2.2-4.0); Glucose, Blood 133.0 mg/dL (70-99); Potassium, Blood 4.4 mmol/L (3.5-5.5); Sodium, Blood 131.0 mmol/L (136-145); Total Protein, Blood 7.4 g/dL (6.4-8.2)
[2024-12-27 07:40] LABS: pH Blood Venous 7.40 (7.34-7.37)
[2024-12-27] MEDS ORDERED: Polyethylene Glycol 3350 17 gm PO PRN (09:25)
[2024-12-27] MEDS ORDERED: FARYDAK10 MG PO (11:29)
[2024-12-27 12:13] VITALS: BP 114/95
[2024-12-27] MEDS ORDERED: ZINC220 PO (13:08)
[2024-12-27] MEDS ORDERED: DIGOX125 MC1 PO (13:11)
[2024-12-27] MEDS ORDERED: TORS10 PO (13:16)
[2024-12-27] MEDS ORDERED: CO Q10100 MG PO (13:19)
[2024-12-27] MEDS ORDERED: THERA-D2000 UNIT PO (13:21)
[2024-12-27] MEDS ORDERED: B-12500 MC2 PO (13:22)
[2024-12-27] MEDS ORDERED: C COMPLEX1000 M1 PO (13:22)
[2024-12-27] MEDS ORDERED: VASCEPA1 G1 PO (13:27)
[2024-12-27] MEDS ORDERED: ACET500 PO (13:33)
[2024-12-27] MEDS ORDERED: POTA10T PO (13:35)
[2024-12-27] MEDS ORDERED: GABA100 PO (13:36)
[2024-12-27] MEDS ORDERED: OXAYDO5 M1 PO (13:38)
[2024-12-27] MEDS ORDERED: METO100 PO (15:07)
[2024-12-27] MEDS ORDERED: METO100ER PO (15:24)
[2024-12-27 16:04] VITALS: BP 124/87
--- NOTE | 2024-12-27 18:48 | NUR ---
SUMMARY- PT A/O X4, BEDREST TODAY RELATED TO DYSPNEA WITH EXERTION. PT HAS CRACKLES IN HIS BASES AND OPACITIES SHOWING ON XRAY. PT IS BEING DIURESED. OXYGEN NEEDS STARTED AT 7L, DECREASED TO 5L OVER SHIFT SAT 93-94%, NEW ORDER FOR CONT PULSE OX. PT HAS FREQ DRY COUGH. OCC PRODUCTION, FABBY STRINGY. TELE SR 88, ON DIGOXIN (LEVELS LOW). GIVEN METOPROLOL DOSE AND IV LASIX. TOLERATING FOOD AND FLUID. INSTRUCTED TO BE MODERATE WITH FLUID INTAKE. VSS. PRESENT MOST OF THE DAY, INVOLVED IN DECISION MAKING AND MEMORY FOR PATIENT. WILL REPORT TO NOC RN
[2024-12-27 20:18] VITALS: BP 147/92
[2024-12-27] MEDS ORDERED: Docusate Sodium/Senna 1 Tab PO SCH (21:00)
[2024-12-27 23:42] VITALS: BP 134/85
[2024-12-28 04:51] VITALS: BP 127/76
[2024-12-28 05:54] LABS: Albumin, Blood 2.5 g/dL (3.4-5.0); Anion Gap 8 mmol/L (3-11); Blood Urea Nitrogen 18 mg/dL (8-24); CO2, Blood 29 mmol/L (21-32); Calcium, Blood 8.6 mg/dL (8.5-10.1); Chloride, Blood 99 mmol/L (98-108); Creatinine, Blood 1.07 mg/dL (0.60-1.20); Glucose, Blood 106 mg/dL (70-99); Magnesium, Blood 2.5 mg/dL (1.6-2.4); Phosphorus, Blood 3.6 mg/dL (2.5-4.9); Potassium, Blood 3.9 mmol/L (3.5-5.5); Sodium, Blood 132 mmol/L (136-145)
--- NOTE | 2024-12-28 05:58 | NUR ---
SHIFT SUMMARY 79 YR M ADMITTED ON 12/27/24. FULL CODE. NO ACUTE CHANGES THIS SHIFT. PT IS BACK UP TO 9 L O2, HE WAS FEELING SHORT OF BREATH. HE STATED HE WAS HAVING A HARD TIME GETTING COMFORTABLE AND GOING TO SLEEP. HE WAS MEDICATED FOR BACK PAIN W/ TYLENOL AND OXY AND WAS ABLE TO GET SOME SLEEP AFTER THAT. HE IS VERY PLEASANT AND COOPERATIVE WITH CARE. NO C/O CHEST PAIN, PRESSURE, OR TIGHTNESS AND NO CALLS FROM ASSOCIATE PROJECT MANAGER. NO NEW CHANGES TO REPORT. BED IN LOW POSITION AND CALL LIGHT IN REACH.
[2024-12-28 08:44] VITALS: BP 147/87
[2024-12-28] MEDS ORDERED: [UNRECOGNIZED DRUG - OTHER] PO SCH (09:00)
[2024-12-28] MEDS ORDERED: FARXIGA10 MG PO (09:54)
[2024-12-28] MEDS ORDERED: LIVALO2 MG PO (09:54)
--- NOTE | 2024-12-28 09:54 | NUR ---
PHYSICIAN CONTACT PT C/O DYSPNEA T/O THE NIGHT PER REPORT. PT CURRENTLY ON 10L O2 VIA HIGH FLOW NC. PT SATING AT 88-91% ON THIS. PT REPORTED THAT HIS SATS CAME DOWN TO 76% WHILE RESTING IN BED FOR SOME TIME. PT HAS LABORED BREATHING AND DOES C/O SOB. NO PRN RT TREATMENTS AVAILABLE. DR. AMBRIZ NOTIFIED OF THIS. ORDER TO TRANSFER TO PCU. COMPUTER REPAIR ENGINEER NOTIFIED OF ORDER.
[2024-12-28] MEDS ORDERED: FAMO20 PO ×2 (09:55→12:09)
[2024-12-28] MEDS ORDERED: Albuterol 2.5 MG/3 ML VIAL INH PRN (09:55)
[2024-12-28 11:23] VITALS: BP 121/79
--- NOTE | 2024-12-28 11:30 | NUR ---
Arrival Note Patient transferred from medical floor to PCU 18. Bedside report received. Patient arrives on O2 10L/min high flow NC. Patient able to stand and transfer from [facility] to bed with 1 person assist. Immediately titrated O2 up to 14L/min. Patient in no obvious distress. Vitals checked, O2 maintaining 90%. LS clear with crackles in bases. Only complaint is chronic back pain worsened by rney. Patient received tylenol just before 10am today. Abd distened, normal per patient. Trace edema bilat LE. Skin pwd, no JVD. Patient and family oriented to unit, call light in reach. 2nd IV placed in RFA. RT to room to assess.
--- NOTE | 2024-12-28 11:31 | NUR ---
TRANSFER TO PCU PT TRANSFERED TO PCU. REPORT GIVEN AT BEDSIDE TO PCU NURSE. AT BEDSIDE IN NEW ROOM.
[2024-12-28] MEDS ORDERED: XYZAL5 MG PO (13:04)
[2024-12-28] MEDS ORDERED: TURMERIC500 M2 PO (13:06)
--- NOTE | 2024-12-28 17:04 | NUR ---
SHIFT SUMMARRY PATIENT WAS TRANSFER TO PCU 18 FROM MEDICAL FLOOR FOR HIGH OXYGEN NEEDS. PATIENT ARRIVED TO UNIT ON 10L/MIN HIGH FLOW NC. QUICKLY TITRATED TO 14L/MIN TO KEEPS SATS >90%. LS CLEAR IN UPPER LOBES WITH CRACKLES IN BASES, NO COUGH OR OBVIOUS RESPIRATORY DISTRESS. PATIENT DID DESATURATE WHEN TALKING. PATIENT WAS EVENTUALLY PLACED ON CPAP, TOLERATED WELL AND ABLE TO SLEEP. CASTILLO CATHETER PLACED DURING SHIFT. TOTAL OF 380ML URINE OUTPUT. PATIENT'S AND SON UPDATED ON PLAN OF CARE AND QUESTIONS ANSWERED. PATIENT COMPLIANT WITH ALL CARE PROVIDED AND VERY PLEASANT.
[2024-12-28 17:17] VITALS: BP 97/68; BP 99/68
[2024-12-28 19:33] VITALS: BP 101/63
[2024-12-28 20:35] LABS: Anion Gap 9.0 mmol/L (3-11); Blood Urea Nitrogen 27.0 mg/dL (8-24); CO2, Blood 28.0 mmol/L (21-32); Calcium, Blood 8.9 mg/dL (8.5-10.1); Chloride, Blood 97.0 mmol/L (98-108); Creatinine, Blood 1.35 mg/dL (0.60-1.20); Glucose, Blood 125.0 mg/dL (70-99); Magnesium, Blood 2.5 mg/dL (1.6-2.4); Potassium, Blood 3.5 mmol/L (3.5-5.5); Sodium, Blood 130.0 mmol/L (136-145)
[2024-12-28 21:35] LABS: Influenza A/2009-H1 Not Detected (NOT DETECT); SARS-Cov-2 (COVID-19), BioFire Not Detected (NOT DETECT)
[2024-12-28 23:17] LABS: Hematocrit 43.2 % (37.0-53.0); Hemoglobin 14.1 g/dL (13.5-17.5); Mean Corpuscular HGB Conc 32.6 g/dL (31.5-36.5); Mean Corpuscular Volume 91 fL (80-100); NRBC ABSOLUTE 0.00 K/mm3 (0.00-0.02); NRBC Auto 0.0 /100 WBC (0.0-0.2); Platelet Count 212 K/mm3 (150-400); RDW Coefficient Variation 14.1 % (11.7-14.2); RDW Standard Deviation 47.6 fL (35.1-46.3)
[2024-12-29 00:32] VITALS: BP 106/69
[2024-12-29 03:51] VITALS: BP 108/84
[2024-12-29 04:39] LABS: BASOPHILS ABSOLUTE AUTO 0.07 K/mm3 (0.00-0.23); BASOPHILS PERCENT AUTO 1 % (0-2); EOSINOPHILS ABSOLUTE AUTO 0.63 K/mm3 (0.00-0.68); EOSINOPHILS PERCENT AUTO 7 % (0-6); Hematocrit 44.5 % (37.0-53.0); Hemoglobin 14.5 g/dL (13.5-17.5); IMMATURE GRAN ABSOLUTE AUTO 0.06 K/mm3 (0.00-0.10); IMMATURE GRAN PERCENT AUTO 1 % (0-1); LYMPHOCYTES ABSOLUTE AUTO 0.87 K/mm3 (0.84-5.20); LYMPHOCYTES PERCENT AUTO 9 % (21-46); MONOCYTES ABSOLUTE AUTO 0.87 K/mm3 (0.16-1.47); MONOCYTES PERCENT AUTO 9 % (4-13); Mean Corpuscular HGB Conc 32.6 g/dL (31.5-36.5); Mean Corpuscular Volume 92 fL (80-100); NEUTROPHILS ABSOLUTE AUTO 6.71 K/mm3 (1.96-9.15); NEUTROPHILS PERCENT AUTO 73 % (41-73); NRBC ABSOLUTE 0.00 K/mm3 (0.00-0.02); NRBC Auto 0.0 /100 WBC (0.0-0.2); Platelet Count 214 K/mm3 (150-400); RDW Coefficient Variation 14.2 % (11.7-14.2); RDW Standard Deviation 48.2 fL (35.1-46.3)
[2024-12-29 05:26] LABS: Alanine Aminotransfer (ALT/SGP 20.0 U/L (12-78); Albumin, Blood 2.5 g/dL (3.4-5.0); Albumin/Globulin Ratio 0.5 (0.8-1.8); Anion Gap 11.0 mmol/L (3-11); Aspartate Aminotrans (AST/SGOT 23.0 U/L (12-37); Bilirubin, Total 0.6 mg/dL (0.1-1.0); Blood Urea Nitrogen 30.0 mg/dL (8-24); CO2, Blood 29.0 mmol/L (21-32); Calcium, Blood 8.6 mg/dL (8.5-10.1); Chloride, Blood 94.0 mmol/L (98-108); Creatinine, Blood 1.42 mg/dL (0.60-1.20); Globulin, Blood 5.1 g/dL (2.2-4.0); Glucose, Blood 106.0 mg/dL (70-99); Potassium, Blood 3.7 mmol/L (3.5-5.5); Sodium, Blood 130.0 mmol/L (136-145); Total Protein, Blood 7.6 g/dL (6.4-8.2)
--- NOTE | 2024-12-29 06:47 | NUR ---
SHIFT SUMMARY: PT IS A&OX4, PLEASANT AND APPRECIATIVE OF CARE. PT IS [place], HE DOES HAVE HIS HEARING AIDES, BUT UNABLE TO WEAR THEM WITH THE OXYGEN TUBING BEHIND HIS EARS. VSS ON 11-14L HFNC, CPAP WHILE ASLEEP. AFIB/FLUTTER WITH V-PACED BEATS 80'S-90'S. PT DOES HAVE A NONPRODUCTIVE COUGH. C/O 5/10 PAIN TO HIS BACK, MEDICATED PER EMAR. TOLERATING A REGULAR DIET. X1 ASSIST TO STAND AT BEDSIDE. PT HAS SEVERE LEG CRAMPS. CASTILLO CATHETER DRAINING ADEQUATE AMOUNTS OF CLEAR, CONCENTRATED YELLOW URINE TO GRAVITY. NO BM THIS SHIFT. BED IN LOWEST POSITION, CALL LIGHT WITHIN REACH. CALLS APPROPRIATELY AND IS ABLE TO ADVOCATE NEEDS EFFECTIVELY.
[2024-12-29 07:58] VITALS: BP 116/90
--- NOTE | 2024-12-29 10:49 | NUR ---
PATIENT TO IM AT THIS TIME FOR CHEST CT. ON NRB MASK AT 15L/MIN, ANALISA WELL. DR AMBRIZ DISCUSSED PLAN OF CARE WITH PATIENT AND HIS . PATIENT HAS TOLERATED BEING OFF CPAP THIS MORNING. ABLE TO SWALLOW ALL MEDICATIONS W/O ISSUE. NO RESP DISTRESS NOTED. SATS 86-93% ON 13L/MIN HIGH FLOW NC. DESATS WHEN TALKING AND MINIMAL EXERTION. OCCASIONAL LEG CRAMPING. HOSPITALIST DISCUSSED POSSIBLE PULMONOLOGY CONSULT AFTER CT RESULTS.
[2024-12-29 11:09] VITALS: BP 107/65
--- NOTE | 2024-12-29 15:47 | NUR ---
SHIFT SUMMARY PATIENT A/OX4, COOPERATIVE WITH CARE, ABLE TO MAKE ALL NEEDS KNOWN. PATIENT WAS UP IN CHAIR MOST OF THE SHIFT. CHEST CT DONE THIS SHIFT. RESULTS TO PROVIDER, CONTINUE HOME MEDICATIONS AND DIURETICS. O2 TITRATED FROM 13L/MIN TO 9L/MIN HIGH FLOW NC. SATS >90%. NO RESP DISTRESS. OCCASIONAL PRODUCTIVE COUGH SCANT CLEAR/BROWN SPUTUM. LS CTA DIMINISHED IN BASES. PATIENT MEDICATED PRN FOR ANXIETY, PAIN, AND MUSCLE CRAMPS. PATIENT AND FAMILY UPDATED ON CARE AND QUESTIONS ANSWERED. PATIENT EXPRESSED ANXIETY ABOUT HIS HEALTH CONDITION SEVERAL TIMES DURING SHIFT. PATIENT PROVIDED WITH REASSURANCE AND SUPPORT. CASTILLO DRAINING CLEAR YELLOW URINE TO GRAVITY. MERT AREA SHOWING NO SIGNS OF IRRITATION. PATIENT, SPOUSE, AND SON UPDATED ON RESULTS AND CONTINUED PLAN OF CARE.
[2024-12-29 17:02] VITALS: BP 102/64
[2024-12-29] MEDS ORDERED: CefTRIAXone Sodium 1,000 MG in NS 100 ML IV SCH (17:04)
--- NOTE | 2024-12-29 17:15 | NUR ---
DISCUSSED CT RESULTS WITH DR AMBRIZ. NOTIFIED HER OF INTAKE AND OUTPUT THIS SHIFT. ORDERS RECEIVED.
[2024-12-29 19:46] VITALS: BP 117/76
[2024-12-30] VITALS (7 sets, daily range): BP systolic 95–109; BP diastolic 64–78
--- NOTE | 2024-12-30 06:11 | NUR ---
SHIFT SUMMARY: PT IS A&OX4, PLEASANT AND APPRECIATIVE OF CARE. PT IS [place], HE DOES HAVE HIS HEARING AIDES, BUT UNABLE TO WEAR THEM WITH THE OXYGEN TUBING BEHIND HIS EARS. VSS ON 10-13L HFNC, CPAP WHILE ASLEEP. AFIB/FLUTTER WITH V-PACED BEATS 70'S- 90'S. PT HAS A COUGH, WITH SMALL AMOUNT OF MAROON EXPECTORATE. PT DOES HAVE CHRONIC BACK PAIN, DID NOT REQUIRE PAIN MEDICATIONS THIS SHIFT. TOLERATING A REGULAR DIET. X1 ASSIST TO STAND AT BEDSIDE. PT HAS SEVERE LEG CRAMPS, FLEXERIL HELPS. CASTILLO CATHETER DRAINING LARGE AMOUNTS OF CLEAR, PALE YELLOW URINE TO GRAVITY. NO BM THIS SHIFT. BED IN LOWEST POSITION, CALL LIGHT WITHIN REACH. CALLS APPROPRIATELY AND IS ABLE TO ADVOCATE NEEDS EFFECTIVELY.
[2024-12-30 08:30] LABS: BASOPHILS ABSOLUTE AUTO 0.05 K/mm3 (0.00-0.23); BASOPHILS PERCENT AUTO 1 % (0-2); EOSINOPHILS ABSOLUTE AUTO 0.55 K/mm3 (0.00-0.68); EOSINOPHILS PERCENT AUTO 6 % (0-6); Hematocrit 44.7 % (37.0-53.0); Hemoglobin 15.2 g/dL (13.5-17.5); IMMATURE GRAN ABSOLUTE AUTO 0.06 K/mm3 (0.00-0.10); IMMATURE GRAN PERCENT AUTO 1 % (0-1); LYMPHOCYTES ABSOLUTE AUTO 0.78 K/mm3 (0.84-5.20); LYMPHOCYTES PERCENT AUTO 8 % (21-46); MONOCYTES ABSOLUTE AUTO 0.60 K/mm3 (0.16-1.47); MONOCYTES PERCENT AUTO 6 % (4-13); Mean Corpuscular HGB Conc 34.0 g/dL (31.5-36.5); Mean Corpuscular Volume 89 fL (80-100); NEUTROPHILS ABSOLUTE AUTO 7.50 K/mm3 (1.96-9.15); NEUTROPHILS PERCENT AUTO 79 % (41-73); NRBC ABSOLUTE 0.00 K/mm3 (0.00-0.02); NRBC Auto 0.0 /100 WBC (0.0-0.2); Platelet Count 216 K/mm3 (150-400); RDW Coefficient Variation 13.9 % (11.7-14.2); RDW Standard Deviation 45.8 fL (35.1-46.3)
[2024-12-30 08:55] LABS: Anion Gap 10.0 mmol/L (3-11); Blood Urea Nitrogen 34.0 mg/dL (8-24); CO2, Blood 31.0 mmol/L (21-32); Calcium, Blood 8.7 mg/dL (8.5-10.1); Chloride, Blood 89.0 mmol/L (98-108); Creatinine, Blood 1.37 mg/dL (0.60-1.20); Glucose, Blood 133.0 mg/dL (70-99); Potassium, Blood 3.2 mmol/L (3.5-5.5); Sodium, Blood 127.0 mmol/L (136-145)
[2024-12-30] MEDS ORDERED: PITAVASTATIN 2 MG PO SCH (18:00)
--- NOTE | 2024-12-30 18:41 | NUR ---
SHIFT SUMMARY THE PT IS A&OX4, 1P ASSIST W/ FWW, AND HE MAKES HIS NEEDS KNOWN. THE PT IS [place] AND HAS HEARING AIDS IN HIS DISPOSITION. ON TELE THE PT HAS BEEN AFLUTTER/AFIB 70'S-80'S WITH OCCASIONAL PACED BEATS. BP REMAINS STABLE. HE HAS BEEN BETWEEN 11-13L HFNC T/O THE SHIFT W/ SP02 GOAL 88% OR ABOVE. THE PT IS SOB WITH ACTIVITY. HE HAS BEEN COUGHING THICK MAROON MUCOUS T/O THE SHIFT. A FUNGLE, VIRAL, AND BACTERIAL SPUTUM SAMPLE WERE SENT TO LAB PER DR. AMBRIZ. CPT, MYCOMYST, AND MUCINEX WAS STARTED TODAY. DR. JURADO WAS CONSULTED ON THE PT. THE PT'S ABX ARE BEING INCREASED AND DR. JURADO TOLD THE PT THAT IS HE HAS NO IMPROVEMENT BY THE WEEKEND HE MAY NEED A BRONCOSCOPY 01/03/25. CASTILLO PATENET AND DRAINING TO GRAVITY. THE PT ATTEMPTED TO HAVE A BOWEL MOVMENT THIS AFTERNOON ON THE BSC AND ONLY HAD FLATTUS. PT'S EKATERINA HAS BEEN AT BEDSIDE AND UPDATED ON CARE. SEE NOTES FOR UPDATES.
[2024-12-31 04:02] LABS: BASOPHILS ABSOLUTE AUTO 0.05 K/mm3 (0.00-0.23); BASOPHILS PERCENT AUTO 1 % (0-2); EOSINOPHILS ABSOLUTE AUTO 0.50 K/mm3 (0.00-0.68); EOSINOPHILS PERCENT AUTO 6 % (0-6); Hematocrit 40.6 % (37.0-53.0); Hemoglobin 13.8 g/dL (13.5-17.5); IMMATURE GRAN ABSOLUTE AUTO 0.04 K/mm3 (0.00-0.10); IMMATURE GRAN PERCENT AUTO 1 % (0-1); LYMPHOCYTES ABSOLUTE AUTO 0.81 K/mm3 (0.84-5.20); LYMPHOCYTES PERCENT AUTO 10 % (21-46); MONOCYTES ABSOLUTE AUTO 0.66 K/mm3 (0.16-1.47); MONOCYTES PERCENT AUTO 8 % (4-13); Mean Corpuscular HGB Conc 34.0 g/dL (31.5-36.5); Mean Corpuscular Volume 89 fL (80-100); NEUTROPHILS ABSOLUTE AUTO 6.06 K/mm3 (1.96-9.15); NEUTROPHILS PERCENT AUTO 75 % (41-73); NRBC ABSOLUTE 0.00 K/mm3 (0.00-0.02); NRBC Auto 0.0 /100 WBC (0.0-0.2); Platelet Count 207 K/mm3 (150-400); RDW Coefficient Variation 13.9 % (11.7-14.2); RDW Standard Deviation 44.9 fL (35.1-46.3)
[2024-12-31 04:19] VITALS: BP 101/76
[2024-12-31 04:23] LABS: Anion Gap 9.0 mmol/L (3-11); Blood Urea Nitrogen 43.0 mg/dL (8-24); CO2, Blood 29.0 mmol/L (21-32); Calcium, Blood 8.5 mg/dL (8.5-10.1); Chloride, Blood 89.0 mmol/L (98-108); Creatinine, Blood 1.43 mg/dL (0.60-1.20); Glucose, Blood 116.0 mg/dL (70-99); Potassium, Blood 3.4 mmol/L (3.5-5.5); Sodium, Blood 124.0 mmol/L (136-145)
--- NOTE | 2024-12-31 04:31 | NUR ---
SHIFT SUMMARY THIS RN ASSUMED CARE OF PATIENT AT 1900. PT REMAINS ON 11-13L VIA HFNC. CPAP WITH 50% FIO2 FOR NOC. BP SOFT WITH SBP 90-100. AFIB WITH HR 70-80, OCCASIONAL VPACED BEATS NOTED. PT A&O X4. ABLE TO MAKE NEEDS KNOWN. CASTILLO CATHETER PATENT AND DRAINING TO GRAVITY. BED IN LOWEST POSITION AND CALL LIGHT WITHIN REACH. THIS RN WILL REPORT TO ONCOMING DAYSHIFT RN.
[2024-12-31 08:47] VITALS: BP 120/92
[2024-12-31 11:34] VITALS: BP 97/57
[2024-12-31 15:17] VITALS: BP 109/68
--- NOTE | 2024-12-31 17:34 | NUR ---
SHIFT SUMMARY THE PT IS A&OX4, VERY [place]. HE IS A 1P ASSIST FOR TRANSFERING WITH THE FWW. HE HAS BEEN UP IN THE CHAIR FOR ABOUT A TOTAL OF THREE HOURS. THE PT IS KEPT IN BED AT THIS TIME D/T INCREASING OXYGEN DEMAND. HE STARTED THE SHIFT BETWEEN 11-13L NC. WITH ACTIVITY, RESTING IN BED, AND TALKING THE PT KEPT DESATURATING. HE ENDED UP ON 15L HFNC. [facility] SET UP THE AIRVO FOR THE PT AND CPAP REMAINS AT THE BEDSIDE ON STANDBY. AIRVO 60L 93%. SP02 >88%. RESP RATE 14-20'S. THE PT DENIES ANY INCREASED SOB. HE CONTINUES TO HAVE MODERATE THICK MAROON SPUTUM. DR. PANIAGUA SAW THE PT AND DISCUESSED PLAN OF CARE AND OXYGEN REQUIRMENT. DR. PANIAGUA DID TALK TO THE PT ABOUT POSSIBLE NEED TO BE INTUBATED IF OXYGEN DEMAND CONTINUES TO RAISE. THE PT DID STATE HE WOULD BE OKAY WITH BEING INTUBATED IF IT GOT TO THAT POINT. ALSO, DR. PANIAGUA STARTED THE PT ON IV STEROIDS. CPT CONTINUES, MYCOMYST CONTINUES PER RT, AND THE PT HAS BEEN USING THE FLUTTER VALVE T/O THE DAY. THIS MORNING AT THE START OF THE SHIFT, HIS CASTILLO WAS D/C'D AND A MALE WICKING SYSTEM WAS SET UP. BOWEL MOVMENT THIS SHIFT WITH SHERIFF'S OFFICER IN THE ROOM. THE PT'S EKATERINA HAS BEEN AT BEDSIDE AND UPDATED ON CARE. SEE NOTES FOR UPDATES.
[2024-12-31 19:36] VITALS: BP 102/67
[2024-12-31 23:38] VITALS: BP 101/66
[2025-01-01] VITALS (7 sets, daily range): BP systolic 93–120; BP diastolic 41–76
--- NOTE | 2025-01-01 05:39 | NUR ---
SHIFT SUMMARY: PATIENT IS A&OX4 AND IS VERY [place]. PATIENT IS CURRENTLY ON HEATED HIGHFLOW NC WITH 60L OF OXYGEN AND 71% FIO2 WITH SPO2 >90%. PATIENT DOES DESAT TO <88% SPO2 WHEN REPOSITIONING IN BED, BUT COMES BACK UP TO >88% SPO2 A SHORT AMOUNT OF TIME. PATIENT DID NOT WEAR THE CPAP TONIGHT AND STATED "I FEEL EVEN BETTER AND THAT I'M CLEARING A LOT OUT OF MY LUNGS!". WICKING DEVICE IN PLACE WITH YELLOW URINE OUTPUT IN CANESTER. PAIN IS MANAGED WITH PO OXY, TYLENOL, AND FLEXERIL. PATIENT ALSO REQUESTED FOR HIS PRN PO XANAX WHICH MANAGES HIS ANXIETY. PATIENT CALLS APPROPRIATELY WITH CALL LIGHT IN REACH.
[2025-01-01 09:09] LABS: BASOPHILS ABSOLUTE AUTO 0.01 K/mm3 (0.00-0.23); BASOPHILS PERCENT AUTO 0 % (0-2); EOSINOPHILS ABSOLUTE AUTO 0.00 K/mm3 (0.00-0.68); EOSINOPHILS PERCENT AUTO 0 % (0-6); Hematocrit 42.3 % (37.0-53.0); Hemoglobin 14.6 g/dL (13.5-17.5); IMMATURE GRAN ABSOLUTE AUTO 0.05 K/mm3 (0.00-0.10); IMMATURE GRAN PERCENT AUTO 1 % (0-1); LYMPHOCYTES ABSOLUTE AUTO 0.44 K/mm3 (0.84-5.20); LYMPHOCYTES PERCENT AUTO 6 % (21-46); MONOCYTES ABSOLUTE AUTO 0.13 K/mm3 (0.16-1.47); MONOCYTES PERCENT AUTO 2 % (4-13); Mean Corpuscular HGB Conc 34.5 g/dL (31.5-36.5); Mean Corpuscular Volume 88 fL (80-100); NEUTROPHILS ABSOLUTE AUTO 7.16 K/mm3 (1.96-9.15); NEUTROPHILS PERCENT AUTO 92 % (41-73); NRBC ABSOLUTE 0.00 K/mm3 (0.00-0.02); NRBC Auto 0.0 /100 WBC (0.0-0.2); Platelet Count 229 K/mm3 (150-400); RDW Coefficient Variation 13.7 % (11.7-14.2); RDW Standard Deviation 44.0 fL (35.1-46.3)
[2025-01-01 09:30] LABS: Anion Gap 16.0 mmol/L (3-11); Blood Urea Nitrogen 50.0 mg/dL (8-24); CO2, Blood 24.0 mmol/L (21-32); Calcium, Blood 8.6 mg/dL (8.5-10.1); Chloride, Blood 87.0 mmol/L (98-108); Creatinine, Blood 1.26 mg/dL (0.60-1.20); Glucose, Blood 202.0 mg/dL (70-99); Potassium, Blood 4.0 mmol/L (3.5-5.5); Sodium, Blood 123.0 mmol/L (136-145)
--- NOTE | 2025-01-01 11:50 | NUR ---
MORNING SUMMARY THE PT IS A&OX4, CALLS APPROPRAITELY, AND MAKES HIS NEEDS KNOWN. HE IS A 1P ASSIST WITH FWW AND GB. ON TELE HE IS AFIB/AFLUTTER 70'S-90'S. BP HAS BEEN SOFT BUT STABLE. MAP >65 SBP>90. METORPOLOL PARAMETERS WERE DISCUSSED WITH DR. AMBRIZ AND IT HAD TO BE HELD THIS AM. THE PT HAS BEEN ON THE AIRVO THIS MORNING AND IT HAS BEEN GETTING TITRAITED BY RT. CURRENTLY AT 45L @ 60%. THE PT DOES STATE HE IS BREATHING BETTER TODAY THEN HE HAS BEEN. HE CONTINUES TREATMENT WITH THE FLUTTER VALVE AND CPT. PROGRESS NOTED IN OXYGEN DEMAND. DR. PANIAGUA SAW THE PT AND ORDERED A REPEAT CHEST XR FOR IN THE AM. NO PLAN FOR BRONCOSCOPY TOMORROW. THE PT HAS BEEN USING THE URINAL IND IN THE ROOM. MALE WICKING SYSTEM D/C'D. HE HAS BEEN UP IN THE CHAIR FOR A TOTAL OF ABOUT 2HRS TODAY. HIS EKATERINA HAS BEEN AT BEDSIDE AND UPDATED ON CARE. SHE WAS PRESENT WHEN PULMONOLOGY WAS IN THE ROOM. SEE NOTES FOR UPDATES.
[2025-01-02 04:05] LABS: BASOPHILS ABSOLUTE AUTO 0.01 K/mm3 (0.00-0.23); BASOPHILS PERCENT AUTO 0 % (0-2); EOSINOPHILS ABSOLUTE AUTO 0.00 K/mm3 (0.00-0.68); EOSINOPHILS PERCENT AUTO 0 % (0-6); Hematocrit 42.0 % (37.0-53.0); Hemoglobin 14.6 g/dL (13.5-17.5); IMMATURE GRAN ABSOLUTE AUTO 0.09 K/mm3 (0.00-0.10); IMMATURE GRAN PERCENT AUTO 1 % (0-1); LYMPHOCYTES ABSOLUTE AUTO 0.58 K/mm3 (0.84-5.20); LYMPHOCYTES PERCENT AUTO 5 % (21-46); MONOCYTES ABSOLUTE AUTO 0.36 K/mm3 (0.16-1.47); MONOCYTES PERCENT AUTO 3 % (4-13); Mean Corpuscular HGB Conc 34.8 g/dL (31.5-36.5); Mean Corpuscular Volume 87 fL (80-100); NEUTROPHILS ABSOLUTE AUTO 11.36 K/mm3 (1.96-9.15); NEUTROPHILS PERCENT AUTO 92 % (41-73); NRBC ABSOLUTE 0.00 K/mm3 (0.00-0.02); NRBC Auto 0.0 /100 WBC (0.0-0.2); Platelet Count 236 K/mm3 (150-400); RDW Coefficient Variation 13.5 % (11.7-14.2); RDW Standard Deviation 42.9 fL (35.1-46.3)
[2025-01-02 04:14] VITALS: BP 113/79
[2025-01-02 04:36] LABS: Alanine Aminotransfer (ALT/SGP 28.0 U/L (12-78); Albumin, Blood 2.4 g/dL (3.4-5.0); Albumin/Globulin Ratio 0.5 (0.8-1.8); Anion Gap 11.0 mmol/L (3-11); Aspartate Aminotrans (AST/SGOT 25.0 U/L (12-37); Bilirubin, Total 0.3 mg/dL (0.1-1.0); Blood Urea Nitrogen 61.0 mg/dL (8-24); CO2, Blood 27.0 mmol/L (21-32); Calcium, Blood 8.6 mg/dL (8.5-10.1); Chloride, Blood 88.0 mmol/L (98-108); Creatinine, Blood 1.35 mg/dL (0.60-1.20); Globulin, Blood 5.1 g/dL (2.2-4.0); Glucose, Blood 161.0 mg/dL (70-99); Potassium, Blood 4.2 mmol/L (3.5-5.5); Sodium, Blood 122.0 mmol/L (136-145); Total Protein, Blood 7.5 g/dL (6.4-8.2)
--- NOTE | 2025-01-02 05:10 | NUR ---
NOTIFIED ALESSIA EL MD ABOUT PATIENTS SODIUM LEVEL BEING 122 THIS MORNING, AND SODIUM HAS BEEN IN THE 120'S THE PAST COUPLE OF DAYS WITH NO SODIUM REPLACEMENT ORDERS. PATIENT IS TOLERATING PO INTAKE AND PER DAYSHIFT NOTE FROM YESTERDAY THE BUMEX WAS JUST DISCONTINUED WELL. MD EL SAID "UNLESS THE PATIENT BECOMES SYMPTOMATIC THEN I WOULD PLACE SODIUM REPLACEMENT ORDERS. HOWEVER, SINCE HE IS ASYMPTOMATIC THEN IT SHOULD BE OKAY FOR NOW".
--- NOTE | 2025-01-02 05:37 | NUR ---
SHIFT SUMMARY: PATIENT IS A&OX4 BUT IS NISQUALLY. PATIENTS HEATED HIGH FLOW NC SETTINGS HAVE BEEN 45L OF OXYGEN WITH 57% FIO2. HIS SPO2 HAS BEEN >90% ON THESE HEATED HIGHFLOW. HOWEVER, WHEN THE PATIENT IS TALKING TOO MUCH/AMBULATES DOES DESAT TO <88% SPO2 BUT COMES BACK UP AFTER A FEW MINUTES. TELE SHOWES HEART RHYTHM IN AFIB/FLUTTER WITH PACED BEATS AND HR IN THE 80'S. PAIN AND ANXIETY IS MANAGED WITH PO OXY AND PO XANAX PER JUL. PATIENT TOLERATES PO INTAKE AND IS VOIDING VIA URINAL AT BEDSIDE. PATIENT IS ABLE TO MAKE HIS NEEDS KNOWN AND HAS HIS CALL LIGHT IN REACH.
[2025-01-02 07:17] VITALS: BP 111/76
[2025-01-02 11:24] VITALS: BP 118/75
[2025-01-02 15:54] VITALS: BP 107/63
--- NOTE | 2025-01-02 17:14 | NUR ---
SHIFT NOTE: PT A/OX4 [place] ABLE TO MAKE HIS NEEDS KNOWN AND USES THE CALL LIGHT APPROPRIATELY. HE WAS ON AIRVO AT THE START OF THIS SHIFT BUT HAS BEEN TITRATED DOWN TO 7L NC TO MAINTAIN SPO2>90%. HE REMAINS IN AFIB/FLUTTER WITH PACED BEATS. NO ACUTE CARDIAC EVENTS THIS SHIFT. HE HAS BEEN UP TO THE CHAIR MULTIPLE TIMES T/O THE DAY WITH 1P ASSIST. HE USES THE URINAL AND BSC FOR TOILETING NEEDS. HE REPORTS FEELING MUCH BETTER. PT AND PT'S HAVE BEEN UPDATED ON PLAN OF CARE. CALL LIGHT IN REACH
[2025-01-02 19:24] VITALS: BP 124/84
[2025-01-03 00:52] VITALS: BP 118/73
[2025-01-03 04:12] VITALS: BP 105/71
--- NOTE | 2025-01-03 04:36 | NUR ---
SHIFT SUMMARY: PATIENT IS A&OX4 BUT VERY [place]. PATIENT IS ON 7-8L OXYMIZER NC AND WITHIN SPO2 GOAL RANGE OF >88% PER ORDERS. PATIENT DOES DESAT WHEN NC IS ACCIDENTALLY MOVED OFF FACE WHEN SLEEPING TO <88% OXYGEN SATS, BUT ONCE NC IS PLACED BACK IN POSITION SPO2 COMES BACK UP TO GOAL RANGE. UA WAS COLLECTED DURING THE SHIFT PER BROKER ASSOCIATE'S ORDERS WITH RESULTS COMPLETED. BROKER ASSOCIATE'S ORDERS ALSO INCLUDE FREE WATER RESTRICTION OF 1L. PATIENT WAS EDUCATED THROUGHOUT THE SHIFT ON THE IMPORTANCE OF MAINTAINING THIS RESTRICTION AND IS SOMETHING THE BROKER ASSOCIATE WANTS HIM TO FOLLOW. PATIENT NEEDS SAID EDUCATION TO BE REINFORCED SINCE HE DENIED UNDERSTANDING OF EDUCATION. MD WAS NOTIFIED, NO NEW ORDERS WERE PLACED. PATIENT MAKES HIS NEEDS KNOWN AND CALLS APPROPRIATELY. APATIENT IS CURRENTLY LAYING IN BED WITH CALL LIGHT IN REACH.
[2025-01-03 06:11] LABS: Albumin, Blood 2.5 g/dL (3.4-5.0); Anion Gap 7 mmol/L (3-11); Blood Urea Nitrogen 58 mg/dL (8-24); CO2, Blood 30 mmol/L (21-32); Calcium, Blood 8.9 mg/dL (8.5-10.1); Chloride, Blood 92 mmol/L (98-108); Creatinine, Blood 1.15 mg/dL (0.60-1.20); Glucose, Blood 159 mg/dL (70-99); Phosphorus, Blood 4.1 mg/dL (2.5-4.9); Potassium, Blood 4.3 mmol/L (3.5-5.5); Sodium, Blood 125 mmol/L (136-145)
[2025-01-03 08:28] VITALS: BP 110/74
[2025-01-03 11:53] VITALS: BP 98/63
[2025-01-03 18:10] VITALS: BP 112/69
--- NOTE | 2025-01-03 18:28 | NUR ---
NO ACUTE CHANGES, DR MCALLISTER ROUNDED REPORTED NO CHANGES TO CARE OR ORDERS. DR TOVAR REPORTED PATIENTS NUMBERS ARE IMPROVING AND NO CHANGES MADE. 7L NC, INCREASED SOB WITH MOVEMENT, ENCOURAGED DEEP BREATHING IN NOSE AND OUT MOUTH, AND SON VISITED TODAY, HELPFUL WITH CARE, BM TODAY, NO INSULIN COVERAGE NEEDED OR ORDERED, CALL LIGHT WITH IN REACH, WILL RELAY TO PM RN
[2025-01-03 20:48] VITALS: BP 108/80
[2025-01-04] VITALS (7 sets, daily range): BP systolic 112–148; BP diastolic 70–89
--- NOTE | 2025-01-04 04:33 | NUR ---
SHIFT SUMMARY: NO SIGNIFICANT CHANGES DURING THE NIGHT. PATIENT IS A&OX4. SPO2 HAS BEEN WITHIN GOAL RANGE PER ORDERS WITH PATIENT ON 7L OXYMIZER NC. OTHER VITALS HAVE BEEN STABLE. PAIN IS MANAGED WITH PO TYLENOL AND OXY. ANXIETY IS MANAGED WITH SCHEDULED AND PRN XANAX PER MAR WELL. PATIENT IS TOLERATING PO INTAKE WHILE ALSO STAYING IN HIS 1L FLUID RESTRICTION OF FREE WATER. PATIENT IS VOIDING VIA URINAL AND HAD A BM WELL. SBA WITH FWW AND GAIT BELT WHEN AMBULATING. PATIENT IS CURRENTLY UP IN THE RECLINER CHAIR WITH CALL LIGHT IN REACH. PATIENT MAKES HIS NEEDS KNOWN AND CALLS APPROPRIATELY.
[2025-01-04 05:08] LABS: Albumin, Blood 2.6 g/dL (3.4-5.0); Anion Gap 11 mmol/L (3-11); Blood Urea Nitrogen 45 mg/dL (8-24); CO2, Blood 27 mmol/L (21-32); Calcium, Blood 8.7 mg/dL (8.5-10.1); Chloride, Blood 98 mmol/L (98-108); Creatinine, Blood 1.04 mg/dL (0.60-1.20); Glucose, Blood 167 mg/dL (70-99); Phosphorus, Blood 3.6 mg/dL (2.5-4.9); Potassium, Blood 4.8 mmol/L (3.5-5.5); Sodium, Blood 131 mmol/L (136-145)
--- NOTE | 2025-01-04 17:36 | NUR ---
SHIFT SUMMARY PT REMAINS ALERT AND ORIENTED. BP STABLE. O2 SATS HAVE REMAINED ABOVE 90% ON 6L NC. PT UP TO CHAIR FOR MEALS THIS SHIFT WITH 1 ASSIST. PT USING THE INCENTIVE SPIROMETER AND FLUTTER VALVE MULTIPLE TIMES THIS SHIFT. PT DID NOT HAVE ANY SPUTUM PRODUCTION THIS SHIFT. PT VOIDING USING THE URNIAL. SPOUSE AT BEDSIDE THIS EVENING EATING DINNER WITH PATIENT. WILL CONTINUE PLAN OF CARE AND REPORT TO ONCOMING RN.
[2025-01-05 04:05] VITALS: BP 113/88
--- NOTE | 2025-01-05 05:39 | NUR ---
SHIFT SUMMARY PT IS A&O X4 , ABLE TO MAKE NEEDS KNOWN, PT MOVING EXTREMITIES WITH PURPOSE, SBA TO BRP WITH FWW FOR CORD MANAGEMENT, REPOSITIONING SELF IN BED. CONTINUOUS SPO2, SPO2 88-92% ON 6L O2 VIA NC WHILE AT REST/ WITH ACTIVITY PT DESATURATED TO LOW 80 S-SLOW TO RECOVER WITH BREATHING TECHNIQUES, LUNGS SOUND CLEAR WITH DIMINISHED BASES. CONTINUOUS TELE MONITORING, AFIB/PACED 60-70 S, PULSES PRESENT T/O, PT DENEIS CHEST P/P T/O THIS SHIFT, BP STABLE WITH MAP GREATER THAN 60. BOWEL TONES PRESENT IN ALL 4Q, PT DENIES FEELINGS OF CONSTIPATION OR NAUSEA. CONTINENT, URINE YELLOW IN COLOR REPORTING CHRONIC BACK PAIN, MEDICATED PER ORDERS. BED LOWEST POSITION, CALL LIGHT IN REACH, AWAITING TO GIVE REPORT TO ONCOMING RN.
[2025-01-05 08:06] VITALS: BP 125/75
--- NOTE | 2025-01-05 16:51 | NUR ---
SHIFT SUMMARY S/P ACUTE RESP FAILURE, A/OX4, VSS, TOLERATING PO, PAIN MANAGED PER EMAR, O2 TITRATED DOWN FROM 6L NC TO 4L NC WITH HIS SATS STAYING OVER 91% WHILE ASLEEP. UP TO CHAIR T/O MOST OF THE SHIFT TODAY. NO ACUTE EVENTS, CALL LIGHT IN REACH.
[2025-01-05 17:21] VITALS: BP 110/68
[2025-01-05 19:32] VITALS: BP 111/67
[2025-01-05 23:26] VITALS: BP 101/70
--- NOTE | 2025-01-06 00:37 | NUR ---
SHIFT SUMMARY PT IS A&O X4 , ABLE TO MAKE NEEDS KNOWN, PT MOVING EXTREMITIES WITH PURPOSE, SBA TO BRP WITH FWW FOR CORD MANAGEMENT, REPOSITIONING SELF IN BED. CONTINUOUS SPO2, SPO2 88-92% ON 4L O2 VIA NC WHILE AT REST/ WITH ACTIVITY PT DESATURATED TO LOW 80 S-SLOW TO RECOVER WITH BREATHING TECHNIQUES, LUNGS SOUND CLEAR WITH DIMINISHED BASES. CONTINUOUS TELE MONITORING, AFIB/PACED 60-70 S, PULSES PRESENT T/O, PT DENEIS CHEST P/P T/O THIS SHIFT, BP STABLE WITH MAP GREATER THAN 60. BOWEL TONES PRESENT IN ALL 4Q, PT DENIES FEELINGS OF CONSTIPATION OR NAUSEA. CONTINENT, URINE YELLOW IN COLOR REPORTING CHRONIC BACK PAIN, MEDICATED PER ORDERS. BED LOWEST POSITION, CALL LIGHT IN REACH, AWAITING TO GIVE REPORT TO ONCOMING RN.
[2025-01-06 03:23] VITALS: BP 121/74
--- NOTE | 2025-01-06 06:19 | NUR ---
SHIFT SUMMARY NO ACUTE CHANGED FROM THIS RN'S PREVIOUS NOTE. CALL LIGHT IN REACH, BED LOWEST POSITION
[2025-01-06 07:14] LABS: Albumin, Blood 2.8 g/dL (3.4-5.0); Anion Gap 6 mmol/L (3-11); Blood Urea Nitrogen 32 mg/dL (8-24); CO2, Blood 26 mmol/L (21-32); Calcium, Blood 8.8 mg/dL (8.5-10.1); Chloride, Blood 101 mmol/L (98-108); Creatinine, Blood 0.92 mg/dL (0.60-1.20); Glucose, Blood 107 mg/dL (70-99); Phosphorus, Blood 3.5 mg/dL (2.5-4.9); Potassium, Blood 4.8 mmol/L (3.5-5.5); Sodium, Blood 128 mmol/L (136-145)
[2025-01-06 08:24] VITALS: BP 114/80
[2025-01-06 11:28] VITALS: BP 115/76
[2025-01-06 15:20] VITALS: BP 112/74
--- NOTE | 2025-01-06 17:47 | NUR ---
SHIFT SUMMARY PT A&Ox4, CALLS AND COMMUNICATES NEEDS APPROPRIATELY. BP STABLE, DENIES CP/PRESSURE, PACED 60-70's. SpO2> 90% 4-6L VIA NC, REPORTS INTERMITTENT SOB. ENCOURAGED TO COUGH AND USE IS AND FLUTTER VALVE. PT SBA WITH FWW TO BATHROOM. CONTINENT OF URINE AND BOWEL. COMPLIANT WITH FREE WATER RESTRICTION. MANAGED PAIN PER EMAR. PT REFUSED BEDBATH/SHOWER. NO OTHER EVENTS, WILL REPORT TO ONCOMING RN.
[2025-01-06 19:28] VITALS: BP 114/68
[2025-01-06 20:17] LABS: ALPHA 1 GLOBULIN 0.50 g/dL (0.19-0.46); ALPHA 2 GLOBULIN 1.02 g/dL (0.48-1.05); BETA GLOBULIN 0.81 g/dL (0.48-1.10); GAMMA 0.91 g/dL (0.62-1.51); IMMUNOFIXATION REFLEX Not Done
--- NOTE | 2025-01-06 22:30 | NUR ---
TRANSFER NOTE THIS RN ASSUMED CARE OF PATIENT AT 1900. PT A&O X4. ABLE TO MAKE NEEDS KNOWN. AMBULATED WITH FWW TO BATHROOM. ON 4L VIA NC WITH SPO2 >92%. MEDICATED PER EMAR FOR ANXIETY AND PAIN. VPACED ON MONITOR. OTHER VSS. PT TO BE TRANSFER TO [facility]. THIS RN GAVE REPORT TO MEDICAL FLOOR RN. PT TRANSFERRED VIA WHEELCHAIR WITH NO S/S OF DISTRESS UPON LEAVING.
[2025-01-06 22:49] VITALS: BP 135/86
[2025-01-07 04:14] VITALS: BP 121/74
--- NOTE | 2025-01-07 05:30 | NUR ---
SHIFT SUMMARY ASSUMED CARE AT 2300. PT A/Ox4, VSS ON 4L AT REST, 6L WITH AMBULATION. PT REPORTS 6/10 CHRONIC BACK PAIN, MANAGED WITH PRN OXY. PT REPORTS FEELING THAT STEROIDS ARE RESULTING IN POOR SLEEP, EDUCATION PROVIDED. STRICT I/Os MONITORED. UP TO RESTROOM WITH SBA/FWW.
[2025-01-07 06:15] LABS: Albumin, Blood 2.8 g/dL (3.4-5.0); Anion Gap 9 mmol/L (3-11); Blood Urea Nitrogen 28 mg/dL (8-24); CO2, Blood 27 mmol/L (21-32); Calcium, Blood 8.3 mg/dL (8.5-10.1); Chloride, Blood 100 mmol/L (98-108); Creatinine, Blood 0.95 mg/dL (0.60-1.20); Glucose, Blood 119 mg/dL (70-99); Phosphorus, Blood 3.5 mg/dL (2.5-4.9); Potassium, Blood 4.8 mmol/L (3.5-5.5); Sodium, Blood 131 mmol/L (136-145)
[2025-01-07 08:02] VITALS: BP 122/72
--- NOTE | 2025-01-07 18:06 | NUR ---
ALERT AND ORIENTED X3, MAKES NEEDS KNOWN, [place], 4 LITER NC, POSSIBLE DISCHARGE HOME TOMORROW. MEDICATED FOR PAIN, TO BRING IN PORTABLE O2 TOMORROW FOR POSSBILE TRANSFER HOME, CALL LIGHT WITH IN REACH, WILL RELAY TO PM RN
[2025-01-07 19:32] VITALS: BP 112/77
[2025-01-07 23:52] VITALS: BP 123/91
[2025-01-08 04:17] VITALS: BP 119/76
--- NOTE | 2025-01-08 05:10 | NUR ---
SHIFT SUMMARY PT A&Ox4 AND PLEASANT. NO C/O PAIN DURING THE NIGHT. NO ACUTE CHANGES. CONTINUING FREE WATER RESTRICTIONS. PT REMAINS ON 4L OF OXYGEN AND 6L WHILE AMBULATING. CONTINIOUS PULSE OX IN PLACE. VSS. BED IN LOWEST POSITION AND CALL LIGHT IN REACH.
[2025-01-08 06:47] LABS: Albumin, Blood 2.7 g/dL (3.4-5.0); Anion Gap 5 mmol/L (3-11); Blood Urea Nitrogen 32 mg/dL (8-24); CO2, Blood 30 mmol/L (21-32); Calcium, Blood 8.8 mg/dL (8.5-10.1); Chloride, Blood 104 mmol/L (98-108); Creatinine, Blood 0.92 mg/dL (0.60-1.20); Glucose, Blood 81 mg/dL (70-99); Phosphorus, Blood 3.5 mg/dL (2.5-4.9); Potassium, Blood 4.6 mmol/L (3.5-5.5); Sodium, Blood 134 mmol/L (136-145)
[2025-01-08 07:38] VITALS: BP 108/78
[2025-01-08 11:49] VITALS: BP 116/69
[2025-01-08 15:43] VITALS: BP 116/84
--- NOTE | 2025-01-08 17:35 | NUR ---
PT IS AOX4 AND COOPERATIVE OF CARE.PT HAS O2 NOW AT 2L WHICH IS HIS HOME RATE. PT IS STAYING BETWEEEN 88-92%. PT IS A ONE PERSON ASSIST TO CHAIR OR BED. PT IS ABLE TO MAKE ALL NEEDS KNOWN AND HAS CALL LIGHT IN REACH. WILL CONTINUE TO MONITOR.
[2025-01-08 19:23] VITALS: BP 106/68
[2025-01-08 23:21] VITALS: BP 121/60
[2025-01-09 04:01] VITALS: BP 124/88
[2025-01-09 05:55] LABS: Albumin, Blood 2.8 g/dL (3.4-5.0); Anion Gap 9 mmol/L (3-11); Blood Urea Nitrogen 33 mg/dL (8-24); CO2, Blood 25 mmol/L (21-32); Calcium, Blood 8.6 mg/dL (8.5-10.1); Chloride, Blood 103 mmol/L (98-108); Creatinine, Blood 0.98 mg/dL (0.60-1.20); Glucose, Blood 97 mg/dL (70-99); Phosphorus, Blood 3.6 mg/dL (2.5-4.9); Potassium, Blood 4.6 mmol/L (3.5-5.5); Sodium, Blood 132 mmol/L (136-145)
--- NOTE | 2025-01-09 06:15 | NUR ---
BUSINESS LAWYER SUMMARY VSS. ON O2 PER NC 1-2 L/MIN WITH CONTINOUS PULSE OX TO KEEP SATS 90% OR HIGHER. HOB ELEVATED 45-90%. PT ABLE TO ADJUST. A/OX4. UP TO BATHROOM WITH O2 WITH OBSERVATION. NOTE DESATS WHEN UP IF O2 ISN'T INCREASED. TOLERATED HS MEDS AND DIET WELL. COOPERATIVE. HAS BEEN RESTING QUIETLY WITH FEW INTERRUPTIONS THROUGHOUT NOCT. CALL LIGHT IN REACH, RAILS UP X 2 AND BED IN LOW POSITION FOR SAFETY. WILL CONTINUE TO MONITOR
[2025-01-09 07:41] VITALS: BP 129/72
[2025-01-09 15:06] VITALS: BP 113/70
--- NOTE | 2025-01-09 17:38 | NUR ---
SHIFT SUMMARY: A&OX4 THROUGHOUT SHIFT. PLEASANT AND COOPERATIVE WITH CARE. OUT OF BED MULTIPLE TIMES TO AMBULATE TO THE BATHROOM. REMAINS ON 3L O2 VIA NC. DENIES SHORTNESS OF BREATH. BREATHING EQUAL AND NONLABORED. NO ACUTE EVENTS. HOB ELEVATED FOR DINNER AT THIS TIME. BED LOCKED AND IN THE LOWEST POSITION. CALL LT WITHIN REACH.
[2025-01-09 19:45] VITALS: BP 127/71
[2025-01-10 04:37] VITALS: BP 116/78
--- NOTE | 2025-01-10 05:32 | NUR ---
FILAMENT CUTTER SUMMARY PT A&OX4, VSS. PT HAS BEEN ASLEEP FOR THE MAJORITY OF THE SHIFT. CHEST RISE/RESPIRATIONS NOTED. AWAKE INTERMITTENTLY TO ASK FOR FLUIDS OR USE RESTROOM. 1PA D/T OXYGEN LINES AND BLE WEAKNESS. REMAINS ON 3L NC W/ O2 SATS >=90%. ON CONT PULSE OX. SELF ADJUSTS IN BED. OXYCODONE ADMIN 1X FOR BACK/LEG PAIN. PLEASANT AND COOPERATIVE W/ CARE. USES CALL LIGHT AND VOICES NEED APPROPRIATELY. BED RAILS UP X 2, BED IN LOWEST POSITION, BED WHEELS LOCKED, PERSONAL BELONGINGS AND CALL LIGHT WITHIN REACH FOR SAFETY.
[2025-01-10 07:39] VITALS: BP 113/74
[2025-01-10] MEDS ORDERED: Cyclobenzaprine5 MG PO (11:12)
[2025-01-10] MEDS ORDERED: PRED20 PO (11:18)
--- NOTE | 2025-01-10 11:51 | NUR ---
DISCHARGE NOTE: A&OX4 PRIOR TO D/C. PT EDUCATION AND PACKET EXPLAINED PRIOR TO LEAVING. MEDICATIONS FAXED TO [facility] PER REQUEST. PT SIGNED AND ACKNOWLEDGED INFORMATION GIVEN. ESCORTED OUT VIA W/C WITH PACKER.
== END 2025-01-10 11:52 | disposition home or self-care (01) | DRG 193 ==
LOC: ER 06:26 → MEDS 09:24 → PCU 09:24 → MEDS 12:04 → PCU 12-28 11:07 → MEDS 01-06 22:41
PROVIDERS: Emergency Medicine; Hospitalist; Internal Medicine; Internal Medicine Nephrology; Student in an Organized Health Care Education/Training Program; ADMIT Internal Medicine
PROC: 5A09457 Assistance with Respiratory Ventilation, 24-96 Consecutive Hours, Continuous Positive Airway Pressure (ICD-10-PCS; 2024-12-28)
PROC: 3E03329 Introduction of Other Anti-infective into Peripheral Vein, Percutaneous Approach (ICD-10-PCS; principal; 2024-12-29)
PROC: 5A0945A Assistance with Respiratory Ventilation, 24-96 Consecutive Hours, High Flow/Velocity Cannula (ICD-10-PCS; 2025-01-02)
DX: J18.9 Pneumonia, unspecified organism (principal); I50.33 Acute on chronic diastolic (congestive) heart failure; J96.01 Acute respiratory failure with hypoxia; I13.0 Hypertensive heart and chronic kidney disease with heart failure and stage 1 through stage 4 chronic kidney disease, or unspecified chronic kidney disease; N17.9 Acute kidney failure, unspecified; E22.2 Syndrome of inappropriate secretion of antidiuretic hormone; Z99.81 Dependence on supplemental oxygen; I48.91 Unspecified atrial fibrillation; M10.9 Gout, unspecified; N40.0 Benign prostatic hyperplasia without lower urinary tract symptoms; K21.9 Gastro-esophageal reflux disease without esophagitis; E78.5 Hyperlipidemia, unspecified; M54.50 Low back pain, unspecified; G89.29 Other chronic pain; N18.30 Chronic kidney disease, stage 3 unspecified; I25.2 Old myocardial infarction; I25.10 Atherosclerotic heart disease of native coronary artery without angina pectoris; J43.9 Emphysema, unspecified; R54 Age-related physical debility; E87.6 Hypokalemia; T50.2X5A Adverse effect of carbonic-anhydrase inhibitors, benzothiadiazides and other diuretics, initial encounter; M25.519 Pain in unspecified shoulder; F41.9 Anxiety disorder, unspecified; D63.1 Anemia in chronic kidney disease; Z87.442 Personal history of urinary calculi; Z79.01 Long term (current) use of anticoagulants; Z79.891 Long term (current) use of opiate analgesic; Z79.899 Other long term (current) drug therapy; Z90.49 Acquired absence of other specified parts of digestive tract; Z95.1 Presence of aortocoronary bypass graft; Z95.0 Presence of cardiac pacemaker; Z98.890 Other specified postprocedural states; Z87.891 Personal history of nicotine dependence; Z87.01 Personal history of pneumonia (recurrent); Z88.5 Allergy status to narcotic agent; Z88.8 Allergy status to other drugs, medicaments and biological substances
CPT/HCPCS: 0202U; 36415; 71045; 71250; 80048; 80053; 80069; 80162; 82533; 82570; 82784; 82803; 82947; 83036; 83521; 83735; 83880; 83935; 84133; 84145; 84155; 84165; 84300; 84443; 84484; 84540; 85025; 85027; 86334; 87070; 87205; 87252; 93005; 93010; 94640; 94660; 94664; 94667; 94668; 94760; 94762; 96374; 97110; 97161; 97530; 99285-25; A9270; J0696; J1938; J2919; J7512

== ENCOUNTER → 2025-01-13 | Outpatient (CLI) | payer MEDICARE, OTHER ==
[~2025-01-13] MED LIST changes: +ACET500 PO; +B-12500 MC2 PO; +C COMPLEX1000 M1 PO; +CO Q10100 MG PO; +Cyclobenzaprine5 MG PO; +FARXIGA10 MG PO; +FARYDAK10 MG PO; +GABA100 PO; +METO100 PO; +OXAYDO5 M1 PO; +POTA10T PO; +PRED20 PO; +THERA-D2000 UNIT PO; +TORS10 PO; +TURMERIC500 M2 PO; +VASCEPA1 G1 PO; +XYZAL5 MG PO; +ZINC220 PO
[2025-01-13 16:17] LABS: BASOPHILS ABSOLUTE AUTO 0.02 K/mm3 (0.00-0.23); BASOPHILS PERCENT AUTO 0 % (0-2); EOSINOPHILS ABSOLUTE AUTO 0.06 K/mm3 (0.00-0.68); EOSINOPHILS PERCENT AUTO 1 % (0-6); Hematocrit 45.0 % (37.0-53.0); Hemoglobin 14.2 g/dL (13.5-17.5); IMMATURE GRAN ABSOLUTE AUTO 0.11 K/mm3 (0.00-0.10); IMMATURE GRAN PERCENT AUTO 1 % (0-1); LYMPHOCYTES ABSOLUTE AUTO 0.62 K/mm3 (0.84-5.20); LYMPHOCYTES PERCENT AUTO 5 % (21-46); MONOCYTES ABSOLUTE AUTO 0.21 K/mm3 (0.16-1.47); MONOCYTES PERCENT AUTO 2 % (4-13); Mean Corpuscular HGB Conc 31.6 g/dL (31.5-36.5); Mean Corpuscular Volume 94 fL (80-100); NEUTROPHILS ABSOLUTE AUTO 11.18 K/mm3 (1.96-9.15); NEUTROPHILS PERCENT AUTO 92 % (41-73); NRBC ABSOLUTE 0.00 K/mm3 (0.00-0.02); NRBC Auto 0.0 /100 WBC (0.0-0.2); Platelet Count 149 K/mm3 (150-400); RDW Coefficient Variation 15.0 % (11.7-14.2); RDW Standard Deviation 51.8 fL (35.1-46.3)
[2025-01-13 16:50] LABS: Anion Gap 10.0 mmol/L (3-11); Blood Urea Nitrogen 29.0 mg/dL (8-24); CO2, Blood 27.0 mmol/L (21-32); Calcium, Blood 9.1 mg/dL (8.5-10.1); Chloride, Blood 102.0 mmol/L (98-108); Creatinine, Blood 1.02 mg/dL (0.60-1.20); Glucose, Blood 116.0 mg/dL (70-99); Magnesium, Blood 2.4 mg/dL (1.6-2.4); Potassium, Blood 4.8 mmol/L (3.5-5.5); Sodium, Blood 134.0 mmol/L (136-145)
== END | disposition home or self-care (01) ==
LOC: LAB 13:47 → LAB SHORT 13:47
PROVIDERS: Internal Medicine
DX: I50.30 Unspecified diastolic (congestive) heart failure (principal); Z79.899 Other long term (current) drug therapy
CPT/HCPCS: 80048; 80162; 83735; 85025

== ENCOUNTER 2025-01-24 05:41 | Inpatient (IN) | payer MEDICARE, OTHER ==
[~2025-01-24] VITALS: Ht 177.8 cm; Wt 106.9 kg
[2025-01-24 06:23] LABS: BASOPHILS ABSOLUTE AUTO 0.02 K/mm3 (0.00-0.23); BASOPHILS PERCENT AUTO 0 % (0-2); EOSINOPHILS ABSOLUTE AUTO 0.34 K/mm3 (0.00-0.68); EOSINOPHILS PERCENT AUTO 4 % (0-6); Hematocrit 40.2 % (37.0-53.0); Hemoglobin 12.8 g/dL (13.5-17.5); IMMATURE GRAN ABSOLUTE AUTO 0.08 K/mm3 (0.00-0.10); IMMATURE GRAN PERCENT AUTO 1 % (0-1); LYMPHOCYTES ABSOLUTE AUTO 0.62 K/mm3 (0.84-5.20); LYMPHOCYTES PERCENT AUTO 8 % (21-46); MONOCYTES ABSOLUTE AUTO 0.44 K/mm3 (0.16-1.47); MONOCYTES PERCENT AUTO 5 % (4-13); Mean Corpuscular HGB Conc 31.8 g/dL (31.5-36.5); Mean Corpuscular Volume 93 fL (80-100); NEUTROPHILS ABSOLUTE AUTO 6.68 K/mm3 (1.96-9.15); NEUTROPHILS PERCENT AUTO 82 % (41-73); NRBC ABSOLUTE 0.00 K/mm3 (0.00-0.02); NRBC Auto 0.0 /100 WBC (0.0-0.2); Platelet Count 94 K/mm3 (150-400); RDW Coefficient Variation 16.0 % (11.7-14.2); RDW Standard Deviation 54.9 fL (35.1-46.3)
[2025-01-24 06:34] LABS: Alanine Aminotransfer (ALT/SGP 22.0 U/L (12-78); Albumin, Blood 2.8 g/dL (3.4-5.0); Albumin/Globulin Ratio 0.8 (0.8-1.8); Anion Gap 9.0 mmol/L (3-11); Aspartate Aminotrans (AST/SGOT 19.0 U/L (12-37); Bilirubin, Total 0.7 mg/dL (0.1-1.0); Blood Urea Nitrogen 21.0 mg/dL (8-24); CO2, Blood 27.0 mmol/L (21-32); Calcium, Blood 8.6 mg/dL (8.5-10.1); Chloride, Blood 102.0 mmol/L (98-108); Creatinine, Blood 0.93 mg/dL (0.60-1.20); Globulin, Blood 3.7 g/dL (2.2-4.0); Glucose, Blood 124.0 mg/dL (70-99); Potassium, Blood 4.4 mmol/L (3.5-5.5); Sodium, Blood 134.0 mmol/L (136-145); Total Protein, Blood 6.5 g/dL (6.4-8.2)
[2025-01-24] MEDS ORDERED: Albuterol 2.5 MG/3 ML VIAL INH ONE (06:45)
[2025-01-24] MEDS ORDERED: Albuterol 2.5 MG/3 ML VIAL INH SCH (06:50)
[2025-01-24] MEDS ORDERED: Ondansetron HCl 2 MG / ML 2ML Vial IV PRN (10:25)
[2025-01-24] MEDS ORDERED: Vancomycin (Pharmacy Consult) IV SCH (11:00)
[2025-01-24 12:14] LABS: pH Blood Venous 7.49 (7.34-7.37)
--- NOTE | 2025-01-24 12:30 | NUR ---
TRANSFER TO PCU: PT ARRIVES TO PCU 15 VIA EMS ON 3L NC. PT A&OX4. FOLLOWS COMMANDS AND ANSWERS QUESTIONS APPROPRIATELY. ED NURSE REPORTS PT TRANSFERING [place] TO CT TABLE ON THE WAY TO PCU AND THAT PT DESATURATED TO 81%. PT DID DESAT WHEN GETTING TO HOSPITAL BED FROM ED [facility] AND TOOK A WHILE TO RECOVER. PT ON 8L NC AT THIS TIME AND GETS HYPOXIC WITH MINIMAL ACTIVITY LIKE USING THE URINAL. PT REPORTS SLIGHT SOB. DENIES ANY COMPLAINTS OF CP, PRESSURE OR TIGHTNESS. WILL CONTINUE TO CARE FOR PT TILL END OF SHIFT.
[2025-01-24 15:27] VITALS: BP 111/71
--- NOTE | 2025-01-24 17:56 | NUR ---
sHIFT SUMMARY: PT A&OX4. FOLLOWS COMMANDS AND MAKES NEEDS KNOWN TO STAFF.PT HAS GOTTEN UP A FEW TIMES TO USE THE BEDSIDE COMMODE AND DESATURATED EVEN ON 8L NC. PT HAS BEEN ON AND OFF CPAP SINCE ARRIVAL AND HAS BEEN TOLERATING IT WELL. PT HAS REMAINED FREE OF CP, PRESSURE, TIGHTNESS BUT REPORTS SLIGHT SOB.PT IS TOLERATING PO INTAKE WELL. NO ACUTE NEURO SYMPTOMS. PT IS AFLUTTER WITH OCASSIONAL V PACING. NO SIGNIFICANT EVENTS HAPPENED DURING THIS SHIFT. WILL CONTINUE TO CARE FOR PT TILL END OF SHIFT.
[2025-01-24 20:09] VITALS: BP 131/77
[2025-01-24] MEDS ORDERED: PITAVASTATIN 2 MG TABLET PO SCH (21:00)
--- NOTE | 2025-01-24 21:03 | NUR ---
ASSUMED CARE OF PT AT 1900 PT IS A+O X4 ABLE TO MAKE NEED KNOWN. ON BIPAP DURING BEDSIDE SHIFT REPORT, THAN PLACED ON 6L NC FOR ORAL PILLS AND TO EAT A SNACK. O2 SATS 90% AND ABOVE. PT SON STOPPED BY FOR BREIF VISIT AND UPDATE ON PT STATUS. IV ABX INFUSING PER EMAR. VSS. CURRENTLY SITTING UP IN BED WATCHING TV ON HIS PERSONAL LAPTOP. BED IN LOWEST POSTION CALL LIGHT IN REACH.
[2025-01-24 23:26] VITALS: BP 113/90
[2025-01-25 03:49] VITALS: BP 114/83
[2025-01-25 04:26] LABS: Anion Gap 11.0 mmol/L (3-11); Blood Urea Nitrogen 26.0 mg/dL (8-24); CO2, Blood 27.0 mmol/L (21-32); Calcium, Blood 8.9 mg/dL (8.5-10.1); Chloride, Blood 99.0 mmol/L (98-108); Creatinine, Blood 0.89 mg/dL (0.60-1.20); Glucose, Blood 166.0 mg/dL (70-99); Potassium, Blood 4.1 mmol/L (3.5-5.5); Sodium, Blood 133.0 mmol/L (136-145)
--- NOTE | 2025-01-25 05:57 | NUR ---
NOC SHIFT SUMMARY PT IS A+O X4 ABLE TO MAKE NEEDS KNOWN, UPPER [place] (WEARS HEARING AIDS) WHICH ARE RESENT WITH HIM IN HOSPITAL. PT ALSO HAS DENTURES IN CUP IN THE ROOM. PT WAS PROVIDED A BED BATH LAST NIGHT AND LIEN CHANGED. PT IS KIND AND COOPERATIVE WITH CARES. 02 SATURATIONS REMAINED ABOVE 90% FOR MOST OF THE NIGHT W/ FEW EPISODES OF DESATURATION WHILE GETTING DRESSING AND ASSISTING WITH BATHING SELF. ALTERNATED BETWEEN CPAP AND NC DURING THE NIGHT. DENIES SOB CURRENTLY. WEAK COUGH NOTED W/ NO SPUTUM PRODUCTION. CARE CONTINUES WILL REPORT TO ONCOMING RN.
[2025-01-25] MEDS ORDERED: Cholecalciferol 1000 Unit Tablet (=25MCG) PO SCH (09:00)
[2025-01-25] MEDS ORDERED: Zinc Sulfate 220 MG Cap (Provides 50MG) PO SCH (09:00)
[2025-01-25 09:30] VITALS: BP 134/85
[2025-01-25 12:58] VITALS: BP 125/74
[2025-01-25 14:58] LABS: C-REACTIVE PROTEIN, EXT RANGE 10.6 mg/dL (0.000-0.300); Lactate Dehydrogenase (Ld),Bld 271.0 U/L (100-240)
[2025-01-25 15:16] LABS: BASOPHILS ABSOLUTE AUTO 0.01 K/mm3 (0.00-0.23); BASOPHILS PERCENT AUTO 0 % (0-2); EOSINOPHILS ABSOLUTE AUTO 0.00 K/mm3 (0.00-0.68); EOSINOPHILS PERCENT AUTO 0 % (0-6); Hematocrit 40.6 % (37.0-53.0); Hemoglobin 13.0 g/dL (13.5-17.5); IMMATURE GRAN ABSOLUTE AUTO 0.06 K/mm3 (0.00-0.10); IMMATURE GRAN PERCENT AUTO 1 % (0-1); LYMPHOCYTES ABSOLUTE AUTO 0.31 K/mm3 (0.84-5.20); LYMPHOCYTES PERCENT AUTO 3 % (21-46); MONOCYTES ABSOLUTE AUTO 0.32 K/mm3 (0.16-1.47); MONOCYTES PERCENT AUTO 3 % (4-13); Mean Corpuscular HGB Conc 32.0 g/dL (31.5-36.5); Mean Corpuscular Volume 91 fL (80-100); NEUTROPHILS ABSOLUTE AUTO 9.79 K/mm3 (1.96-9.15); NEUTROPHILS PERCENT AUTO 93 % (41-73); NRBC ABSOLUTE 0.00 K/mm3 (0.00-0.02); NRBC Auto 0.0 /100 WBC (0.0-0.2); Platelet Count 129 K/mm3 (150-400); RDW Coefficient Variation 15.7 % (11.7-14.2); RDW Standard Deviation 52.2 fL (35.1-46.3)
[2025-01-25 18:02] VITALS: BP 128/92
--- NOTE | 2025-01-25 18:31 | NUR ---
SHIFT SUMMARY: PT A&OX4. FOLLOWS COMMANDS AND MAKES NEEDS KNOWN TO STAFF. PT HAS BEEN USING URINAL AND COMMODE AT BEDSIDE DUE TO DESAT WITH EXERTION. PT HAS HAD A GOOD AMOUNT OF URINARY OUTPUT SINCE BEING STARTED ON LASIX THIS AM. PLAN FOR A BRONCHOSCOPE TOMORROW AT [address] PANIAGUA. PT GIVEN WRITTEN AND VERBAL INFORMATION ON PROCEDURE. PT DENIES ANY COMPLAINS OF CP, PRESSURE OR TIGHTNESS. REPORTS SOB OFF AND ON WITH EXERTION. PT WAS TITRATED DOWN TO 6L NC AND IS SATING 93% THIS EVENING. REMAINS IN A FLUTTER WITH OCCASIONAL V PACING. VSS. NO OTHER SIGNIFICANT EVENTS HAPPENED DURING THIS SHIFT. WILL CONTINUE TO CARE FOR PT TILL END OF SHIFT.
[2025-01-25 19:46] VITALS: BP 131/87
[2025-01-26] VITALS: BP 133/94
[2025-01-26 04:00] VITALS: BP 129/97
--- NOTE | 2025-01-26 06:03 | NUR ---
NOC SHIFT SUMMARY PT IS A&OX4 ABLE TO MAKE NEEDS KNOWN AMD USES CALL LIGHT. PT HAS BEEN USING URINIAL IN BED D/T DESAT W/ EXERTION. PT HAD A FEW EPISODES OF DESATURATION WHEN TALKING OR SWITCHING FROM THE NC TO THE BIPAP. WHEN ON NC HE WAS WEARING 6-8L BASELINE HOME O2 IS 3L. HE STATES HIS SOB IS MUCH IMPROVED. DENIES CHEST PAIN/PRESSURE. VSS. IV ABX INFUSING PER EMAR. MEDICATED PER EMAR W/ PRN PAIN MEDS FOR CHRONIC BACK PAIN. PT CURRENTLY RESTING IN BED, CALL LIGHT IN REACH, CARE CONTINUES. WILL REPORT TO ONCOMING RN.
[2025-01-26 07:35] VITALS: BP 131/83
[2025-01-26 08:59] LABS: Anion Gap 7.0 mmol/L (3-11); Blood Urea Nitrogen 32.0 mg/dL (8-24); CO2, Blood 31.0 mmol/L (21-32); Calcium, Blood 9.2 mg/dL (8.5-10.1); Chloride, Blood 102.0 mmol/L (98-108); Creatinine, Blood 0.86 mg/dL (0.60-1.20); Glucose, Blood 131.0 mg/dL (70-99); Potassium, Blood 4.7 mmol/L (3.5-5.5); Sodium, Blood 135.0 mmol/L (136-145)
[2025-01-26] MEDS ORDERED: EpiNEPhrine 1 MG/1 ML 1ML Vial ONE (09:35)
[2025-01-26] MEDS ORDERED: Lidocaine 2% Jelly Uro-Jet ONE (09:35)
[2025-01-26] MEDS ORDERED: Ipratropium/Albuterol SulF 2.5-0.5MG/3 ML Amp ONE (09:45)
--- NOTE | 2025-01-26 09:58 | NUR ---
01/26/25 0958 Param Arreaga MONITOR INTACT WITH CONTINUOUS PULSE OXIMETRY, CONTINUOUS END TITAL CO2, 3-LEAD EKG AND INTERMITTENT BLOOD PRESSURE. DUONEB GIVEN VIA MASK @ 0959 PER. PHILL AUDIT ASSOCIATE ORDER.
[2025-01-26 11:55] VITALS: BP 135/95
[2025-01-26 13:11] LABS: Lymphocytes, BAL 23.0 % (5-10); Macrophages, BAL 39.0 % (90-100); Neutrophils, BAL 38.0 % (1-5)
[2025-01-26 13:20] LABS: Eosinophils, BAL 2.0 % (0-1); Lymphocytes, BAL 17.0 % (5-10); Macrophages, BAL 16.0 % (90-100); Neutrophils, BAL 66.0 % (1-5)
[2025-01-26 14:13] LABS: Acinetobacter baumannii DNA Not Detected copy/mL (NOT DETECT); Chlamydia pneumonia Not Detected (NOT DETECT); Enterobacter cloacae DNA Not Detected copy/mL (NOT DETECT); Escherichia coli DNA Not Detected copy/mL (NOT DETECT); Haemophilus influenzae DNA Not Detected copy/mL (NOT DETECT); Human Coronavirus RNA Not Detected (NOT DETECT); Human Metapneumovirus RNA Not Detected (NOT DETECT); Influenza virus A RNA Not Detected (NOT DETECT); Influenza virus B RNA Not Detected (NOT DETECT); Klebsiella aerogenes DNA Not Detected copy/mL (NOT DETECT); Klebsiella oxytoca DNA Not Detected copy/mL (NOT DETECT); Klebsiella pneumoniae DNA Not Detected copy/mL (NOT DETECT); Moraxella catarrhalis DNA Not Detected copy/mL (NOT DETECT); Proteus sp DNA Not Detected copy/mL (NOT DETECT); Pseudomonas aeruginosa DNA Not Detected copy/mL (NOT DETECT); Respiratory syncytial Vir RNA Not Detected (NOT DETECT); Rhinovirus+Enterovirus RNA Not Detected (NOT DETECT); Serratia marcescens DNA Not Detected copy/mL (NOT DETECT); Staphylococcus aureus DNA Not Detected copy/mL (NOT DETECT); Streptococcus agalactiae DNA Not Detected copy/mL (NOT DETECT); Streptococcus pneumoniae DNA Not Detected copy/mL (NOT DETECT); Streptococcus pyogenes DNA Not Detected copy/mL (NOT DETECT)
[2025-01-26 14:14] LABS: Acinetobacter baumannii DNA Not Detected copy/mL (NOT DETECT); Chlamydia pneumonia Not Detected (NOT DETECT); Enterobacter cloacae DNA Not Detected copy/mL (NOT DETECT); Escherichia coli DNA Not Detected copy/mL (NOT DETECT); Haemophilus influenzae DNA Not Detected copy/mL (NOT DETECT); Human Coronavirus RNA Not Detected (NOT DETECT); Human Metapneumovirus RNA Not Detected (NOT DETECT); Influenza virus A RNA Not Detected (NOT DETECT); Influenza virus B RNA Not Detected (NOT DETECT); Klebsiella aerogenes DNA Not Detected copy/mL (NOT DETECT); Klebsiella oxytoca DNA Not Detected copy/mL (NOT DETECT); Klebsiella pneumoniae DNA Not Detected copy/mL (NOT DETECT); Moraxella catarrhalis DNA Not Detected copy/mL (NOT DETECT); Proteus sp DNA Not Detected copy/mL (NOT DETECT); Pseudomonas aeruginosa DNA Not Detected copy/mL (NOT DETECT); Respiratory syncytial Vir RNA Not Detected (NOT DETECT); Rhinovirus+Enterovirus RNA Not Detected (NOT DETECT); Serratia marcescens DNA Not Detected copy/mL (NOT DETECT); Staphylococcus aureus DNA Not Detected copy/mL (NOT DETECT); Streptococcus agalactiae DNA Not Detected copy/mL (NOT DETECT); Streptococcus pneumoniae DNA Not Detected copy/mL (NOT DETECT); Streptococcus pyogenes DNA Not Detected copy/mL (NOT DETECT)
[2025-01-26 14:38] LABS: Vancomycin, Trough 17.7 ug/mL (5.0-10.0)
[2025-01-26 16:07] VITALS: BP 120/83
--- NOTE | 2025-01-26 17:06 | NUR ---
PT IS A&Ox4 AND ABLE TO MAKE NEEDS KNOWN. HE IS ON 8LNC W/O2 SATS > 92%. HE IS A SBA FOR AMBULATION TO BSC AND CHAIR, THOUGH HIS O2 SATS DO DROP W/EXERTION. HE HAD A BRONCHOSCOPY DONE TODAY AND TOLERATED THAT WELL. IN ROOM VISITING. NO NEEDS OR CONCERNS NOTED @ THIS TIME. BED IN LOW POSITION, CALL LIGHT AND PERSONAL BELONGINGS IN REACH.
[2025-01-26 20:27] VITALS: BP 135/93
--- NOTE | 2025-01-26 21:23 | NUR ---
ASSUMPTION OF CARE/ASSSSMENT: ASSUMED CARE OF PT AT 1900; BEDSIDE SHIFT REPORT RECIEVED FROM NAKUL CADENA. PT A&O X 4, PLEASANT AND COOPERATIVE WITH CARE. PT ON HFNC @ 8LPM, DENIES SOB, LUNGS CLEAR WITH DIM BASES AND SPO2 94<. AFIV/V-PACED ON MONITOR WITH HR 70-80'S, BP STABLE AND DENIES CHEST PAIN/PRESSURE AT THIS TIME. HH DIET, TOLERATES PO INTAKE. URINAL/COMMODE FOR ELIMITATION NEEDS. PT HAS PG TO GISELA THAT IS PATENT AND SALINE LOCKED. PT USING CALL LIGHT APPROPRIATE AND MAKES NEEDS KNOWN. NO PAIN COMPLAINTS AT THIS TIME. BED LOWERED, CALL LIGHT IN REACH.
[2025-01-27] VITALS (8 sets, daily range): BP systolic 112–134; BP diastolic 79–90
[2025-01-27 04:17] LABS: CYCLIC CITRULLINATED PEP,IGG/A 5 Units (0-19)
[2025-01-27 05:07] LABS: ANTI-NUCLEAR AB ANA,IGG ELISA None Detected (None Detected)
--- NOTE | 2025-01-27 05:18 | NUR ---
SHIFT SUMMARY: NO ACUTE CHANGES OVERNIGHT; VSS THROUGHOUT THE SHIFT. PT ON CPAP @ 10 AND FIO2 50% WHILE SLEEPING, AN 8 L HFNC WHEN AWAKE. PT HAS PG TO GISELA THAT IS PATENT. PT ABLE TO MAKE NEEDS KNOWN. BED LOWERED, CALL LIGHT IN REACH, WILL REPORT OFF TO ONCOMING RN.
[2025-01-27 06:16] LABS: Anion Gap 5.0 mmol/L (3-11); Blood Urea Nitrogen 36.0 mg/dL (8-24); CO2, Blood 34.0 mmol/L (21-32); Calcium, Blood 8.9 mg/dL (8.5-10.1); Chloride, Blood 100.0 mmol/L (98-108); Creatinine, Blood 0.98 mg/dL (0.60-1.20); Glucose, Blood 156.0 mg/dL (70-99); Potassium, Blood 5.0 mmol/L (3.5-5.5); Sodium, Blood 134.0 mmol/L (136-145)
[2025-01-27 07:52] LABS: ALLERGEN, A. ALTERNATA IGE <0.10 kU/L (<=0.34); ALLERGEN, A. FUMIGATUS IGE <0.10 kU/L (<=0.34); ALLERGEN, BOX ELDER/MAPLE IGE <0.10 kU/L (<=0.34); ALLERGEN, CAT DANDER IGE <0.10 kU/L (<=0.34); ALLERGEN, COMMN/SH RAGWEED IGE <0.10 kU/L (<=0.34); ALLERGEN, COTTONWOOD TREE IGE <0.10 kU/L (<=0.34); ALLERGEN, DOG DANDER IGE <0.10 kU/L (<=0.34); ALLERGEN, HORMODENDRUM IGE <0.10 kU/L (<=0.34); ALLERGEN, MOUNTAIN CEDAR IGE <0.10 kU/L (<=0.34); ALLERGEN, MOUSE EPITHELIUM IGE <0.10 kU/L (<=0.34); ALLERGEN, P. NOTATUM IGE <0.10 kU/L (<=0.34); ALLERGEN, SHEEP SORREL IGE <0.10 kU/L (<=0.34); ALLERGEN, TIMOTHY GRASS IGE <0.10 kU/L (<=0.34); ALLERGEN, TREE, ALDER TREE IGE <0.10 kU/L (<=0.34); ALLERGEN, TREE, BIRCH TREE IGE <0.10 kU/L (<=0.34); ALLERGEN, TREE, ELM TREE IGE <0.10 kU/L (<=0.34); ALLERGEN, TREE, OAK TREE IGE <0.10 kU/L (<=0.34); ALLERGEN, WALNUT TREE IGE <0.10 kU/L (<=0.34); ALLERGEN, WEED, NETTLE IGE <0.10 kU/L (<=0.34); ALLERGEN, WEED, PIGWEED IGE <0.10 kU/L (<=0.34); ALLERGEN, WHITE ASH TREE IGE <0.10 kU/L (<=0.34); ALLERGEN,COCKROACH,GERMAN IGE <0.10 kU/L (<=0.34); ALLERGEN,D. FARINAE IGE <0.10 kU/L (<=0.34); ALLERGEN,M. RACEMOSUS IGE <0.10 kU/L (<=0.34); IMMUNOGLOBULIN E 8 kU/L (<=214)
--- NOTE | 2025-01-27 18:20 | NUR ---
PT SUMMARY NO ACUTE CHANGE FOR THE SHIFT. PT REMAINS ON 6-8L OF O2 8 L WITH EXERTION AND 6L AT REST. SATS KEPT ABOVE 90%. HRR VPACED AFIB 80'S, SBP 115, AFEBRILE. PT HAS BEEN AMBUALTING TO THE BATHROOM VIA WALKER, PT REPORTS SOEM SOB WILL DESAT TO HIGH 80'S RECOVERS BACK QUICK WHEN BACK TO BED. PT ABLE TO DEMONSTRATE USE OF FLUTTER VALVE PER RT. PT HAS BEEN COUGHING OUT BLOOD TINGED SPUTUM. DENIES CHEST PAIN/PRESSURE. TOLERATING PO INTAKE. PT CONTINUES ON IV ABO, STEROIDS AND LASIX. PT HAS BEEN PLEASANT AND COOPERATIVE WITH CARES CALLS APPROPRIATELY. WILL REPORT TO ONCOMING SHIFT
[2025-01-28 03:06] LABS: BASOPHILS ABSOLUTE AUTO 0.01 K/mm3 (0.00-0.23); BASOPHILS PERCENT AUTO 0 % (0-2); EOSINOPHILS ABSOLUTE AUTO 0.00 K/mm3 (0.00-0.68); EOSINOPHILS PERCENT AUTO 0 % (0-6); Hematocrit 41.0 % (37.0-53.0); Hemoglobin 13.1 g/dL (13.5-17.5); IMMATURE GRAN ABSOLUTE AUTO 0.09 K/mm3 (0.00-0.10); IMMATURE GRAN PERCENT AUTO 1 % (0-1); LYMPHOCYTES ABSOLUTE AUTO 0.41 K/mm3 (0.84-5.20); LYMPHOCYTES PERCENT AUTO 5 % (21-46); MONOCYTES ABSOLUTE AUTO 0.20 K/mm3 (0.16-1.47); MONOCYTES PERCENT AUTO 3 % (4-13); Mean Corpuscular HGB Conc 32.0 g/dL (31.5-36.5); Mean Corpuscular Volume 92 fL (80-100); NEUTROPHILS ABSOLUTE AUTO 7.45 K/mm3 (1.96-9.15); NEUTROPHILS PERCENT AUTO 91 % (41-73); NRBC ABSOLUTE 0.00 K/mm3 (0.00-0.02); NRBC Auto 0.0 /100 WBC (0.0-0.2); Platelet Count 146 K/mm3 (150-400); RDW Coefficient Variation 15.4 % (11.7-14.2); RDW Standard Deviation 52.1 fL (35.1-46.3)
[2025-01-28 03:22] LABS: Anion Gap 7.0 mmol/L (3-11); Blood Urea Nitrogen 41.0 mg/dL (8-24); CO2, Blood 35.0 mmol/L (21-32); Calcium, Blood 8.6 mg/dL (8.5-10.1); Chloride, Blood 98.0 mmol/L (98-108); Creatinine, Blood 0.85 mg/dL (0.60-1.20); Glucose, Blood 156.0 mg/dL (70-99); Potassium, Blood 4.8 mmol/L (3.5-5.5); Sodium, Blood 135.0 mmol/L (136-145)
[2025-01-28 04:11] VITALS: BP 151/100
[2025-01-28 07:45] VITALS: BP 121/89
[2025-01-28 15:26] VITALS: BP 120/93
--- NOTE | 2025-01-28 18:22 | NUR ---
Pt. is awake in bed and welcomes my visit. Pt. is pleasant. Facilitated a life review. Pt. verbalized some of is health concerns and unanswered questions. Listened with empahty and sought to normalize the Pt. experience. Pt. displayed evidence of trust in both his medical team and our spiritual care. Considered matters of bryan and belief. Prayed with the Pt. Pt. verbalized gratitude for the spiritual care visit.
--- NOTE | 2025-01-28 18:55 | NUR ---
PT SUMMARY; NO ACUTE CHANGE FOR THE SHIFT, PT TRANSITIONED TO MEDICAL STATUS NO TELE. PT WAS TITRATED DOWN TO 4L OF O2 VIA NASAL CANNULA SATS KEPT ABOVE 90%, PT TOLERATING AT REST NEEDING ATLEAST 8L WITH EXERTION, PT HAS BEEN INSTRUCTED TO TAKE SOME DEEP BREATHS WILL DESAT TO LOW 80'S AND RECOVERS BACK UP. PT HAD A SHOWER THIS AFTERNOON HAS SOME SHORT OF BREATH PT ABLE TO TOLERATE. STEROIDS DECREASED TO 40MG BID, PO ABO, PO LASIX. TO DC TO HOME WHEN PT IS READY. PT HAS BEEN CALLING APPROPRIATELY. WILL REPORT TO ONCOMING SHIFT
[2025-01-28 19:24] VITALS: BP 129/73
[2025-01-28] MEDS ORDERED: Lactobacil 2-S.Thermo-Bifido 1 1 Cap PO SCH (21:00)
[2025-01-29 00:03] VITALS: BP 129/91
[2025-01-29 03:38] VITALS: BP 122/86
--- NOTE | 2025-01-29 05:30 | NUR ---
SHIFT SUMMARY PT A&O X, CALM, COOPERATIVE TO CARE. PT MEDICAL STATUD, NO TELEMETRY. HE DENIES ANY CP/PRESSURE. SBP STABLE. HR IN THE 70'S-80'S. SpO2 AT 96% ON CPAP AT THIS TIME. PT ON 4-5L VIA NC WHILE AWAKE. HE DOES GET SOB WITH EXERTION AND DESATS THE THE LOW 80'S. HE RECOVERS QUICKLY WITH DEEP BREATHING AND INCREASE IN O2 TO 6L. NO ACUTE CHANGES T/O NIGHT. PT RESTING IN BED A TTHIS TIME. CALL LIGHT IN REACH. WILL MONITOR PT AND REPORT TO ONCOMING RN.
[2025-01-29 07:35] VITALS: BP 116/89
--- NOTE | 2025-01-29 17:58 | NUR ---
PT SUMMARY; NO ACUTE CHANGE FOR THE SHIFT. PLAN TO DC HOME TOMORROW IF PT FEEL COMFORTABLE AND BETTER. VTIALS HAS BEEN STABLE. PT STILL ON 4-8L OF O2. 4L AT REST AND 8L WITH EXERTION. DISCUSSED PLAN OF CARE WITH BOTH AND PT, BOTH AGREEABLE WITH THE PLANS. NO OTHER ISSUES REPORTED FOR THE SHIFT, PT HAS BEEN PLEASANT AND COOPERATIVE CALLS APPROPRIATELY. WILL REPORT TO ONCOMING SHIFT
--- NOTE | 2025-01-29 18:18 | NUR ---
Pt. is awake in bed, eating dinner when he welcomes my visit. Pt. is pleasant. Pt. verbalizes his expectation to be discharged over the weekend. Facilitated more life review. Pt. displayed evidence of being encouraged. Prayed with the Pt. Pt. verbalized gratitude for the spiritual care visit.
[2025-01-29 19:44] VITALS: BP 129/85
[2025-01-29 23:40] VITALS: BP 114/77
[2025-01-30 03:36] VITALS: BP 122/96
--- NOTE | 2025-01-30 05:31 | NUR ---
SHIFT SUMMARY PT A&O X4, CALM, COOPERATIVE TO CARE. PT MEDICAL STATUS NO TELE. SBP STABLE. HE DENIES ANY CP/PRESSURE. HR IN THE 70'S. SpO2 >92% ON 4-6L VIA NC. HE DOES GET SOB AND DESAT WITH EXERTION BUT RECOVERS QUICKLY. PT HAS CPAP AT BEDSIDE FOR SLEEP, 4-5L BLEED IN. PT USING URINAL AND BATHROOM IND, TOLERATING WELL. NO ACUTE CHANGES T/O NIGHT. PT RESTING IN BED A THIS TIME, CALL LIGHT IN REACH. WILL MONITOR PT AND REPORT TO ONCOMING RN.
[2025-01-30 08:06] VITALS: BP 119/82
[2025-01-30] MEDS ORDERED: PRED20 PO (14:57)
[2025-01-30] MEDS ORDERED: TORSE20 PO (14:59)
[2025-01-30] MEDS ORDERED: AMOX500 PO (14:59)
--- NOTE | 2025-01-30 16:15 | NUR ---
DISCHARGE SUMMARY PT A&OX4. SP02>90% ON 5L NC. HOME 02 STUDY DONE, UPDATED W/ [facility]. [facility] REP, SHILA, IN ROOM WITH PT HOME 02 TANK AND NC. NO TELEMETRY. POWERGLIDE REMOVED. DISCHARGE INSTRUCTIONS REVIEWED W/ PT. PT VERBALIZED ALREADY APPT FOLLOWUP SET UP FOR MD PANIAGUA OUT PT. DISCHARGE MEDICATIONS REVIEWED W/ PT AND . MEDICATION REC FAXED TO [facility] PER PT REQUEST. PT DRESSED IN HOME CLOTHES. PT WHEELED TO PRIVATE VEHICLE WITH WITH ALL PT BELONGINGS. CALL PLACED TO SHILA FROM [facility] PRIOR TO DC TO MEET [facility] REST EQUIPMENT.
== END 2025-01-30 15:55 | disposition home or self-care (01) | DRG 193 ==
LOC: ER 05:41 → PCU 10:23 → ENPENDDIS 01-30 12:58 → PCU 01-30 15:55
PROVIDERS: Emergency Medicine; Internal Medicine Critical Care Medicine; Registered Nurse; ADMIT Internal Medicine
PROC: 5A09357 Assistance with Respiratory Ventilation, Less than 24 Consecutive Hours, Continuous Positive Airway Pressure (ICD-10-PCS; 2025-01-24)
PROC: 0B9H8ZX Drainage of Lung Lingula, Via Natural or Artificial Opening Endoscopic, Diagnostic (ICD-10-PCS; 2025-01-26)
PROC: 5A0935A Assistance with Respiratory Ventilation, Less than 24 Consecutive Hours, High Flow/Velocity Cannula (ICD-10-PCS; 2025-01-26)
PROC: 3E03329 Introduction of Other Anti-infective into Peripheral Vein, Percutaneous Approach (ICD-10-PCS; 2025-01-26)
PROC: 0B9D8ZX Drainage of Right Middle Lung Lobe, Via Natural or Artificial Opening Endoscopic, Diagnostic (ICD-10-PCS; principal; 2025-01-26 10:00)
DX: J18.9 Pneumonia, unspecified organism (principal); J96.21 Acute and chronic respiratory failure with hypoxia; J44.1 Chronic obstructive pulmonary disease with (acute) exacerbation; J44.0 Chronic obstructive pulmonary disease with (acute) lower respiratory infection; R04.89 Hemorrhage from other sites in respiratory passages; Z99.81 Dependence on supplemental oxygen; I48.91 Unspecified atrial fibrillation; I10 Essential (primary) hypertension; E11.9 Type 2 diabetes mellitus without complications; G47.33 Obstructive sleep apnea (adult) (pediatric); M19.90 Unspecified osteoarthritis, unspecified site; M10.9 Gout, unspecified; H91.90 Unspecified hearing loss, unspecified ear; D69.6 Thrombocytopenia, unspecified; D64.9 Anemia, unspecified; F41.9 Anxiety disorder, unspecified; F32.A Depression, unspecified; N40.0 Benign prostatic hyperplasia without lower urinary tract symptoms; E78.5 Hyperlipidemia, unspecified; K21.9 Gastro-esophageal reflux disease without esophagitis; Z98.890 Other specified postprocedural states; Z79.899 Other long term (current) drug therapy; Z79.01 Long term (current) use of anticoagulants; Z88.8 Allergy status to other drugs, medicaments and biological substances; Z88.1 Allergy status to other antibiotic agents; Z88.5 Allergy status to narcotic agent; Z90.49 Acquired absence of other specified parts of digestive tract; Z95.0 Presence of cardiac pacemaker; Z87.891 Personal history of nicotine dependence; Z87.19 Personal history of other diseases of the digestive system
CPT/HCPCS: 0528U; 36415; 71045; 71260; 80048; 80053; 80202; 82785; 82803; 83615; 83880; 84484; 85025; 85060; 85651; 86003; 86003-59; 86037; 86038; 86140; 86200; 86430; 87070; 87077; 87186; 87205; 87449; 88108; 92610; 93005; 93010; 94644; 94660; 94664; 94761; 94762; 96374; 96375; 99285-25; A9270; J0169; J1938; J2185; J2704; J2919; J3373; J7040; J7050; J7120; J7512; Q9967

== ENCOUNTER 2025-05-17 06:22 | Emergency (ER) | payer MEDICARE, OTHER ==
[~2025-05-17] VITALS: Ht 177.8 cm; Wt 116.6 kg
[~2025-05-17 06:22] MED LIST changes: +AMOX500 PO
[2025-05-17 07:10] LABS: BASOPHILS ABSOLUTE AUTO 0.01 K/mm3 (0.00-0.23); BASOPHILS PERCENT AUTO 0 % (0-2); EOSINOPHILS ABSOLUTE AUTO 0.05 K/mm3 (0.00-0.68); EOSINOPHILS PERCENT AUTO 1 % (0-6); Hematocrit 41.1 % (37.0-53.0); Hemoglobin 12.9 g/dL (13.5-17.5); IMMATURE GRAN ABSOLUTE AUTO 0.13 K/mm3 (0.00-0.10); IMMATURE GRAN PERCENT AUTO 1 % (0-1); LYMPHOCYTES ABSOLUTE AUTO 0.75 K/mm3 (0.84-5.20); LYMPHOCYTES PERCENT AUTO 8 % (21-46); MONOCYTES ABSOLUTE AUTO 0.48 K/mm3 (0.16-1.47); MONOCYTES PERCENT AUTO 5 % (4-13); Mean Corpuscular HGB Conc 31.4 g/dL (31.5-36.5); Mean Corpuscular Volume 94 fL (80-100); NEUTROPHILS ABSOLUTE AUTO 7.83 K/mm3 (1.96-9.15); NEUTROPHILS PERCENT AUTO 85 % (41-73); NRBC ABSOLUTE 0.00 K/mm3 (0.00-0.02); NRBC Auto 0.0 /100 WBC (0.0-0.2); Platelet Count 113 K/mm3 (150-400); RDW Coefficient Variation 14.6 % (11.7-14.2); RDW Standard Deviation 50.5 fL (35.1-46.3)
[2025-05-17 07:19] LABS: Alanine Aminotransfer (ALT/SGP 31.0 U/L (12-78); Albumin, Blood 3.3 g/dL (3.4-5.0); Albumin/Globulin Ratio 1.0 (0.8-1.8); Anion Gap 8.0 mmol/L (3-11); Aspartate Aminotrans (AST/SGOT 23.0 U/L (12-37); Bilirubin, Total 0.3 mg/dL (0.1-1.0); Blood Urea Nitrogen 24.0 mg/dL (8-24); CO2, Blood 35.0 mmol/L (21-32); Calcium, Blood 8.9 mg/dL (8.5-10.1); Chloride, Blood 97.0 mmol/L (98-108); Creatinine, Blood 1.06 mg/dL (0.60-1.20); Globulin, Blood 3.3 g/dL (2.2-4.0); Glucose, Blood 109.0 mg/dL (70-99); Potassium, Blood 4.0 mmol/L (3.5-5.5); Sodium, Blood 136.0 mmol/L (136-145); Total Protein, Blood 6.6 g/dL (6.4-8.2)
[2025-05-17 09:30] VITALS: BP 137/125
== END 2025-05-17 10:09 | disposition home or self-care (01) ==
LOC: ER 06:22
PROVIDERS: Emergency Medicine
DX: R07.9 Chest pain, unspecified (principal); I11.0 Hypertensive heart disease with heart failure; I50.30 Unspecified diastolic (congestive) heart failure; K21.9 Gastro-esophageal reflux disease without esophagitis; J44.9 Chronic obstructive pulmonary disease, unspecified; Z79.52 Long term (current) use of systemic steroids; Z79.899 Other long term (current) drug therapy; Z88.5 Allergy status to narcotic agent; Z88.8 Allergy status to other drugs, medicaments and biological substances
CPT/HCPCS: 71045; 80053; 83880; 84484; 85025; 93005; 93010; 99285-25